=== PATIENT | female | born 1955 | race Caucasian/White ===

== ENCOUNTER 2017-01-22 17:13 | Emergency (ER) | payer BC, OTHER ==
[~2017-01-22] VITALS: Ht 162.6 cm; Wt 46.3 kg
[2017-01-22 17:13] VITALS: BP 138/80
[2017-01-22] MEDS ORDERED: DOXYCYCLINE HYCLATE 100 MG TAB PO ONE (17:45)
== END 2017-01-22 17:59 | disposition home or self-care (01) ==
LOC: M ED 17:53
DX: S10.86XA Insect bite of other specified part of neck, initial encounter (principal); W57.XXXA Bitten or stung by nonvenomous insect and other nonvenomous arthropods, initial encounter; Y92.9 Unspecified place or not applicable; Y93.9 Activity, unspecified; Y99.9 Unspecified external cause status; F17.200 Nicotine dependence, unspecified, uncomplicated

== ENCOUNTER → 2019-12-04 | Outpatient (REF) | payer OTHER | LOC: M LAB REF 19:08 | PROVIDERS: ATTEND Physician Assistant | DX: R05 Cough (principal) | CPT/HCPCS: 87486; 87581; 87633; 87798; U0002 ==

== ENCOUNTER → 2019-12-04 | Outpatient (REF) | payer OTHER ==
[2019-12-04 19:36] LABS: BASO % 0.3 % (0.0-1.0); EOS # 0.1 10^3/uL (0.0-0.5); EOS % 0.6 % (0.0-3.0); HEMOGLOBIN 12.7 g/dl (12.0-15.5); LYMPH # 1.9 10^3/uL (1.5-5.0); LYMPH % 15.2 % (24.0-44.0); MEAN CORPUSCULAR HEMOGLOBIN 38.6 pg (27.0-33.0); MEAN CORPUSCULAR HGB CONC 33.4 g/dl (32.0-36.5); MONO # 1.4 10^3/uL (0.0-0.8); MONO % 11.5 % (0.0-5.0); NEUTROPHILS # 8.8 10^3/uL (1.5-8.5); PLATELET COUNT, AUTOMATED 383 10^3/uL (150-450); RED BLOOD COUNT 3.29 10^6/uL (4.00-5.40); WHITE BLOOD COUNT 12.2 10^3/uL (4.0-10.0)
[2019-12-04 19:37] LABS: MEAN CORPUSCULAR VOLUME 115.5 fl (80.0-96.0)
[2019-12-04 19:58] LABS: ALBUMIN 3.7 GM/DL (3.2-5.2); ALT/SGPT 16 U/L (12-78); BILIRUBIN,TOTAL 0.4 MG/DL (0.2-1.0); BLOOD UREA NITROGEN 11 MG/DL (7-18); CALCIUM LEVEL 9.1 MG/DL (8.8-10.2); CARBON DIOXIDE LEVEL 26 MEQ/L (21-32); CHLORIDE LEVEL 102 MEQ/L (98-107); CREATININE FOR GFR 0.96 MG/DL (0.55-1.30); GLOMERULAR FILTRATION RATE > 60.0 (>45); GLUCOSE, FASTING 94 MG/DL (70-100); POTASSIUM SERUM 3.6 MEQ/L (3.5-5.1); SODIUM LEVEL 138 MEQ/L (136-145); TOTAL PROTEIN 7.3 GM/DL (6.4-8.2)
[2019-12-04 20:01] LABS: PLATELET ESTIMATE NORMAL (NORMAL)
== END ==
LOC: M LABDRWAD 19:10
PROVIDERS: ATTEND Physician Assistant
DX: R50.9 Fever, unspecified (principal); J44.1 Chronic obstructive pulmonary disease with (acute) exacerbation

== ENCOUNTER 2021-06-20 05:45 | Inpatient (IN) | payer MEDICARE, BC, OTHER ==
[~2021-06-20] VITALS: Ht 165.1 cm; Wt 56.9 kg
--- OUTSIDE RECORDS SUMMARY | 2021-06-20 05:50 | CCD ---
Author Author [facility] [place] [facility] Address Unknown Phone Unavailable Support Name Relationship Address Phone UE Next Of Kin Unknown Unavailable Re-disclosure Warning The records that you are about to access may contain information from federally-assisted alcohol or drug abuse programs. If such information is present, then the following federally mandated warning applies: This information has been disclosed to you from records protected by federal confidentiality rules (42 CFR part 2). The federal rules prohibit you from making any further disclosure of this information unless further disclosure is expressly permitted by the written consent of the person to whom it pertains or as otherwise permitted by 42 CFR part 2. A general authorization for the release of medical or other information is NOT sufficient for this purpose. The Federal rules restrict any use of the information to criminally investigate or prosecute any alcohol or drug abuse patient.The records that you are about to access may contain highly sensitive health information, the redisclosure of which is protected by Article 27-F of the [facility] Public Health law. If you continue you may have access to information: Regarding HIV / AIDS; Provided by facilities licensed or operated by the [facility] Office of Mental Health; or Provided by the [facility] Office for People With Developmental Disabilities. If such information is present, then the following [facility] mandated warning applies: This information has been disclosed to you from confidential records which are protected by state law. State law prohibits you from making any further disclosure of this information without the specific written consent of the person to whom it pertains, or as otherwise permitted by law. Any unauthorized further disclosure in violation of state law may result in a fine or shelter sentence or both. A general authorization for the release of medical or other information is NOT sufficient authorization for further disc losure. Family History Family Member Name Family Member Gender Family Member Status Date o f Status Description Data Source(s) Unknown Unknown Problem [facility] ([facility]) Immunizations Vaccine Date Status Description Data Source(s) COVID-19 VACC, MRNA(PFIZER)/PF 05/10/2021 12:00:00 AM EDT completed [facility] COVID-19 VACCINE Pfizer 05/10/2021 12:00:00 AM EDT completed [facility] Vaccine Series Complete: YESThis Data wa s Submitted to [facility] Via [employer]. COVID-19 VACCINE Pfizer 04/19/2021 12:00:00 AM EDT completed [facility] Vaccine Series Complete: NOThis Data was Submitted to [facility] Via [employer]. COVID-19 VACC, MRNA(PFIZER)/PF 04/19/2021 12:00:00 AM EDT completed [facility] Medications No Information Insurance Providers Payer name Policy type / Coverage type Policy ID Covered constitution party ID Covered constitution party's relationship to pal Policy Pal Plan Information [facility] [id number] FR2 [id number] [facility] [id number] FR2 [id number] MEDICARE [id number] [facility] [id number] [id number] [facility] Commercial [id number] Sponsored Dependent [id number] [facility] [id number] Problems, Conditions, and Diagnoses No Information Surgeries/Procedures No Information Results No Information Social History No Information
[2021-06-20] MEDS ORDERED: IPRATROPIUM 0.02% SOLN 0.5MG 2.5ML NEB INH ONE (05:55)
[2021-06-20] MEDS ORDERED: ALBUTEROL SULFATE 2.5 MG/0.5 ML INH NEB SOLN INH ONE (05:55)
[2021-06-20 06:06] LABS: ABG BASE EXCESS -1.5 (-2.0-2.0); ABG HCO3 23.6 MEQ/L (22.0-26.0); ABG O2 SATURATION 99.5 % (95.0-99.0); ABG PARTIAL PRESSURE CO2 41.3 mmHg (35.0-45.0); ABG PARTIAL PRESSURE O2 207.5 mmHg (75.0-100.0); ABG STANDARD HCO3 23.3 MEQ/L (22.0-26.0); ABG TOTAL CO2 24.9 MEQ/L (23.0-31.0); ABG pH (ARTERIAL) 7.375 UNITS (7.350-7.450)
[2021-06-20 06:30] LABS: BASO % 0.2 % (0.0-1.0); EOS % 0.1 % (0.0-3.0); HEMATOCRIT 42.4 % (36.0-47.0); HEMOGLOBIN 14.6 g/dl (12.0-15.5); LYMPH # 0.8 10^3/uL (1.5-5.0); LYMPH % 4.6 % (24.0-44.0); MEAN CORPUSCULAR HEMOGLOBIN 39.4 pg (27.0-33.0); MEAN CORPUSCULAR HGB CONC 34.4 g/dl (32.0-36.5); MONO % 5.6 % (2.0-8.0); NEUTROPHILS # 15.7 10^3/uL (1.5-8.5); NEUTROPHILS % 88.8 % (36.0-66.0); PLATELET COUNT, AUTOMATED 275 10^3/uL (150-450); RED BLOOD COUNT 3.71 10^6/uL (4.00-5.40); WHITE BLOOD COUNT 17.6 10^3/uL (4.0-10.0)
[2021-06-20] MEDS ORDERED: dexameTHASONE 20MG/5ML VIAL (J1100 PER 1MG) IV ONE (06:35)
[2021-06-20 06:40] LABS: MEAN CORPUSCULAR VOLUME 114.3 fl (80.0-96.0)
--- OUTSIDE RECORDS SUMMARY | 2021-06-20 06:40 | CCD ---
Author Author [facility] Address Unknown Phone Unavailable Support Name Relationship [...] is protected by Article 27-F of the [facility] Public Health law. If you continue you may have access to information: Regarding HIV / AIDS; Provided by facilities licensed or operated by the [facility] Office of Mental Health; or Provided by the [facility] Office for People With Developmental Disabilities. If such information is present, then the following [facility] mandated warning applies: This information has been [...] law may result in a fine or prison sentence or both. A general authorization for [...] Complete: YESThis Data wa s Submitted to [facility] Via [employer]. COVID-19 VACCINE Pfizer 04/19/2021 12:00:00 AM EDT completed [facility] Vaccine Series Complete: NOThis Data was Submitted to [facility] Via [employer]. COVID-19 VACC, MRNA(PFIZER)/PF 04/19/2021 12:00:00 AM EDT completed [facility] Medications No Information Insurance Providers Payer name Policy type / Coverage type Policy ID Covered constitution party ID Covered constitution party's relationship to pal Policy Pal Plan Information [facility] [id number] FR2 [id number] [facility] [id number] FR2 [id number] MEDICARE [id number] [id number] [facility] [id number] 2 [id number] [facility] Commercial [id number] Sponsored Dependent [id number] [facility] [id number] Problems, Conditions, and Diagnoses No Information Surgeries/Procedures No Information Results No Information Social History No Information
[2021-06-20 06:55] LABS: ALBUMIN 2.7 GM/DL (3.2-5.2); ALT/SGPT 32 U/L (12-78); BILIRUBIN,DIRECT 0.3 MG/DL (0.0-0.2); BILIRUBIN,TOTAL 0.6 MG/DL (0.2-1.0); BLOOD UREA NITROGEN 25 MG/DL (7-18); CALCIUM LEVEL 8.2 MG/DL (8.8-10.2); CARBON DIOXIDE LEVEL 28 MEQ/L (21-32); CHLORIDE LEVEL 96 MEQ/L (98-107); CK-MB VALUE MASS 2.1 NG/ML (<3.6); CPK CREATINE PHOSPHOKINASE 110 U/L (26-192); CREATININE FOR GFR 1.14 MG/DL (0.55-1.30); GLOMERULAR FILTRATION RATE 50.6 (>45); GLUCOSE, FASTING 103 MG/DL (70-100); MB/CK RELATIVE INDEX 1.91 (< OR =4); NT-PRO BNP 2590 PG/ML (<125); POTASSIUM SERUM 3.8 MEQ/L (3.5-5.1); SODIUM LEVEL 133 MEQ/L (136-145); TOTAL PROTEIN 6.5 GM/DL (6.4-8.2); TROPONIN I < 0.02 NG/ML (< 0.10)
[2021-06-20] MEDS ORDERED: cefTRIAXone SOD 2 GM in D5W MINI-BAG PLUS 50 ML IV ONE (06:55)
[2021-06-20] MEDS ORDERED: NS 1,430 ML in IV 1 EA IV ONE (07:10)
[2021-06-20] MEDS ORDERED: LEVALBUTEROL 1.25 MG/0.5 ML CONCENTRATE NEB INH PRN (07:25)
--- NOTE | 2021-06-20 07:30 | REPVR ---
PROCEDURE INFORMATION: Exam: XR Chest Exam date and time: 06/20/2021 6:12 AM Age: 66 years old Clinical indication: Other: Dyspnea/cough TECHNIQUE: Imaging protocol: XR of the chest. Views: 1 view. COMPARISON: No relevant prior studies available. FINDINGS: Lungs: Moderately severe large area of increased interstitial ground-glass density and nodularity in the left lower lobe and lateral left upper lobe suspicious for an atypical/viral pneumonia/pneumonitis, with COVID-19 infection in the differential diagnosis. Bilateral pulmonary hyperinflation is also present suggestive of underlying COPD. Pleural spaces: Unremarkable. No pleural effusion. No pneumothorax. Heart/Mediastinum: The heart size is normal. Normal size pulmonary vasculature. No CT evidence of acute thoracic aortic aneurysm. Mild tortuosity of the descending thoracic aorta, however. No enlarged lymph nodes. Bones/joints: The bony structures of the chest are normal Impression. IMPRESSION: 1. Moderately severe large area of increased interstitial ground-glass density and nodularity in the left lower lobe and lateral left upper lobe suspicious for an atypical/viral pneumonia/pneumonitis, with COVID-19 infection in the differential diagnosis. Bilateral pulmonary hyperinflation is also present suggestive of underlying COPD. 2. The heart size is normal. Normal size pulmonary vasculature. 3. No CT evidence of acute thoracic aortic aneurysm. Mild tortuosity of the descending thoracic aorta, however. Electronically signed by: Calin Kuhn On 06/20/2021 07:30:09 AM
[2021-06-20] MEDS ORDERED: ISOVUE-370 76% 100ML VIAL As Ordered ONE (07:32)
--- OUTSIDE RECORDS SUMMARY | 2021-06-20 07:35 | CCD ---
Author Author [facility] Address Unknown Phone Unavailable Support Name Relationship [...] is protected by Article 27-F of the [facility] Public Health law. If you continue you may have access to information: Regarding HIV / AIDS; Provided by facilities licensed or operated by the [facility] Office of Mental Health; or Provided by the [facility] Office for People With Developmental Disabilities. If such information is present, then the following [facility] mandated warning applies: This information has [...] law may result in a fine or usp sentence or both. A general authorization for [...] Complete: YESThis Data wa s Submitted to [facility] Via [employer]. COVID-19 VACCINE Pfizer 04/19/2021 12:00:00 AM EDT completed [facility] Vaccine Series Complete: NOThis Data was Submitted to [facility] Via [employer]. COVID-19 VACC, MRNA(PFIZER)/PF 04/19/2021 12:00:00 AM EDT completed [facility] Medications No Information Insurance Providers Payer name Policy type / Coverage type Policy ID Covered libertarian ID Covered libertarian's relationship to pal Policy Pal Plan Information [facility] [id number] FR2 [id number] [facility] [id number] FR2 [id number] MEDICARE [id number] G06 [facility] [id number] [facility] Commercial [id number] Sponsored Dependent [id number] [facility] [id number] Problems, Conditions, and Diagnoses No Information Surgeries/Procedures No Information Results No Information Social History No Information
[2021-06-20 07:53] LABS: PLATELET ESTIMATE NORMAL (NORMAL)
[2021-06-20 07:54] LABS: ANISOCYTOSIS 2+
[2021-06-20] MEDS: LEVALBUTEROL 1.25 MG/0.5 ML CONCENTRATE NEB INH SCH ×4 (08:29→22:57)
[2021-06-20] MEDS ORDERED: HOME MED LIST COMPLETE! XX SCH (08:45)
--- NOTE | 2021-06-20 09:31 | REPVR ---
PROCEDURE INFORMATION: Exam: CTA Chest With Contrast Exam date and time: 06/20/2021 7:59 AM Age: 66 years old Clinical indication: Shortness of breath; Additional info: SOB tachycardia R/O pe TECHNIQUE: Imaging protocol: Computed tomographic angiography of the chest with contrast. 3D rendering (Not supervised by radiologist): MIP and/or 3D reconstructed images were created by the technologist. Radiation optimization: All CT scans at this facility use at least one of these dose optimization techniques: automated exposure control; mA and/or kV adjustment per patient size (includes targeted exams where dose is matched to clinical indication); or iterative reconstruction. Contrast material: ISOVUE 370; Contrast volume: 75 ml; Contrast route: INTRAVENOUS (IV); COMPARISON: CR PORTABLE CHEST X-RAY 06/20/2021 6:03 AM FINDINGS: Pulmonary arteries: No CT evidence of acute pulmonary embolism. Aorta: No CT evidence of acute thoracic aortic dissection, thoracic aneurysm or acute intramural thoracic aortic hematoma. Lungs: Mild pulmonary hyperinflation is seen consistent with underlying COPD. In addition, a moderate-sized questionable loculated pleural effusion is seen anterior to the inferior lingula and medial left upper lobe, adjacent to which is a band of peripheral airspace consolidation and interstitial ground-glass densities and thickening of the interlobular pulmonary septa in the inferior lingula and in the lateral left lower lobe, seen on images 33 through 86 of series 402. This might represent a parapneumonic pleural effusion/early empyema versus COVID-19 peripheral pneumonitis versus an underlying neoplasm of the left upper lobe with associated lymphangitis carcinomatosa less likely. Pleural spaces: See "Lungs" finding. Heart: The heart size is normal. A small anterior pericardial effusion is present. Normal size pulmonary vasculature. No significant coronary artery calcification is present. Lymph nodes: No enlarged lymph nodes. Liver: Incidental note is made of a small 8.5 mm diameter hypodense mass in the anteromedial segment left lobe of the liver on image 187 of series 401. Additional other smaller hypodense masses are present in the left lobe and right lobes of the liver. These masses have benign features with well-defined la and internal homogeneous low attenuation density of less than 20 Hounsfield units and, in the absence of any history of prior cancer in this patient, are likely small simple cysts or hemangiomas. No further follow-up is recommended. Reference: Management of Incidental Liver Lesions on CT: A White Paper of the ACR Incidental Findings Committee. Shlomo Littlejohn MD, et al. Journal of the [place] [employer], Jun 2017, Volume 14, Issue 11, 5412-2497. Bones/joints: The bony structures of the chest are normal for age. Soft tissues: Unremarkable. IMPRESSION: 1. No CT evidence of acute pulmonary embolism. 2. No CT evidence of acute thoracic aortic dissection, thoracic aneurysm or acute intramural thoracic aortic hematoma. 3. The heart size is normal. A small anterior pericardial effusion is present. Normal size pulmonary vasculature. No significant coronary artery calcification is present. 4. Mild pulmonary hyperinflation is seen consistent with underlying COPD. In addition, a moderate-sized questionable loculated pleural effusion is seen anterior to the inferior lingula and medial left upper lobe, adjacent to which is a band of peripheral airspace consolidation and interstitial ground-glass densities and thickening of the interlobular pulmonary septa in the inferior lingula and in the lateral left lower lobe, seen on images 33 through 86 of series 402. This might represent a parapneumonic pleural effusion/early empyema versus COVID-19 peripheral pneumonitis versus an underlying neoplasm of the left upper lobe with associated lymphangitis carcinomatosa less likely. 5. The bony structures of the chest are normal for age. 6. These masses have benign features with well-defined la and internal homogeneous low attenuation density of less than 20 Hounsfield units and, in the absence of any history of prior cancer in this patient, are likely small simple cysts or hemangiomas. No further follow-up is recommended. Reference: Management of Incidental Liver Lesions on CT: A White Paper of the ACR Incidental Findings Committee. Shlomo Littlejohn MD, et al. Journal of the [place] [employer], Jun 2017, Volume 14, Issue 11, 9751-8498. Electronically signed by: Calin Kuhn On 06/20/2021 09:30:38 AM
[2021-06-20] MEDS: PROPRANOLOL 20 MG TAB PO SCH ×3 (09:40→23:19)
[2021-06-20] MEDS: ENOXAPARIN 40MG/0.4ML SYRINGE (J1650 PER 10MG) SC SCH (09:55)
[2021-06-20] MEDS: DOXYCYCLINE HYCLATE 100 MG in D5W MINI-BAG PLUS 100 ML IV SCH ×2 (09:55→22:59)
--- NOTE | 2021-06-20 12:03 | ECGEPIP ---
[facility] Test Date: 2021-06-20 Pat Name: OLGA ROJAS Department: Room: - Gender: Female [employer] Operator: GALINA : 1955 Requested By: ZAK Barth Order Number: [id number] Reading MD: Benito Hubbard Measurements Intervals [place] Rate: 104 P: 82 VA: 126 QRS: 91 QRSD: 76 T: 54 QT: 358 QTc: 470 Interpretive Statements Sinus tachycardia with premature atrial complexes Rightward axis Last tracing on 06/20/21 at 6:18 No remarkable changes but slower heart rate Electronically Signed on 06-20-2021 12:02:39 EDT by Benito Hubbard
[2021-06-20] MEDS ORDERED: NICOTINE POLACRILEX 2 MG GUM PO PRN (12:40)
[2021-06-20 12:55] LABS: CK-MB VALUE MASS 2.5 NG/ML (<3.6); CPK CREATINE PHOSPHOKINASE 119 U/L (26-192); FREE THYROXINE INDEX 3.5 % (1.3-4.8); T UPTAKE 41 % (30-39); THYROXINE (T4) 8.6 UG/DL (4.5-12.0); TROPONIN I < 0.02 NG/ML (< 0.10)
--- NOTE | 2021-06-20 13:18 | HPEPDOC ---
[facility] Medical History & Physical Date of Admission Jun 20, 2021 Date of Service: Jun 20, 2021 History and Physical CHIEF COMPLAINT: Shortness of breath HISTORY OF PRESENT ILLNESS: 66-year-old female with a history of COPD not oxygen or steroid-dependent, alcohol abuse, alcohol withdrawal, alcohol withdrawal seizures, gout, tobacco abuse, marijuana abuse, abnormal EKG with right axis deviation, presents emergency room with a few days history of worsening shortness of breath, initially with exertion, with difficulty walking from bed to the bathroom, but now complains of dyspnea at rest, without fever, chills, or cough productive of sputum. For the past 3 days she has had decrease in appetite, without nausea, vomiting, headache, changes in vision, chest pain, pressure, tightness. She admits to palpitations as without dizziness, lightheadedness, or syncopal episode. She denies any abdominal pain, hematemesis, coffee-ground emesis, bright red blood per rectum melena black tarry stools, dysuria, urgency, miguel quency, polyphagia, polydipsia, weight gain weight loss, changes in sleep habits, joint pains muscle aches, anxiety, depression, unusual masses or nodules, or skin rash. Patient did not have any bronchodilators at home, and no medications were taken. In the emergency room, patient was found to be tachycardic heart rate of 130 bpm sinus, tachypneic with respiratory rate of 34 breaths/min, and was found to have significant wheezing, with chest x-ray showing left lower lobe and left upper lobe infiltrates, EKG sinus tachycardia with right axis deviation, sepsis with white count of 17.6 . Hospitalist was asked to admit the patient for pneumonia, negative for coronavirus, and COPD exacerbation. 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 REVIEW OF SYSTEMS: 10 point system negative aside from positive findings in HPI HOME MEDICATIONS: Please see below. PHYSICAL EXAMINATION: VITAL SIGNS: See below GENERAL APPEARANCE: Cachectic positive use of respiratory accessory muscles no cyanosis or pallor HEENT: No JVD no thyromegaly bitemporal wasting no cervical lymphadenopathy or stridor dry mucous membranes Poor dentition CARDIOVASCULAR: S1-S2 sinus tachycardia laterally displaced point of maximal impulse no murmurs noted LUNGS: Diminished left lower and upper lobe, bilateral wheezing, prolonged expiration ABDOMEN: Positive bowel sounds soft nontender nondistended no rebound or guardin EXTREMITIES: No pitting edema positive clubbing LABORATORY DATA: See below. IMAGING: See below CT CHEST: Pulmonary arteries: No CT evidence of acute pulmonary embolism. Aorta: No CT evidence of acute thoracic aortic dissection, thoracic aneurysm or acute intramural thoracic aortic hematoma. Lungs: Mild pulmonary hyperinflation is seen consistent with underlying COPD. In addition, a moderate-sized questionable loculated pleural effusion is seen anterior to the inferior lingula and medial left upper lobe, adjacent to which is a band of peripheral airspace consolidation and interstitial ground-glass densities and thickening of the interlobular pulmonary septa in the inferior lingula and in the lateral left lower lobe, seen on images 33 through 86 of series 402. This might represent a parapneumonic pleural effusion/early empyema versus COVID-19 peripheral pneumonitis versus an underlying neoplasm of the left upper lobe with associated lymphangitis carcinomatosa less likely. Pleural spaces: See "Lungs" finding. Heart: The heart size is normal. A small anterior pericardial effusion is present. Normal size pulmonary vasculature. No significant coronary artery calcification is present. Lymph nodes: No enlarged lymph nodes. Liver: Incidental note is made of a small 8.5 mm diameter hypodense mass in the anteromedial segment left lobe of the liver on image 187 of series 401. Additional other smaller hypodense masses are present in the left lobe and right lobes of the liver. These masses have benign features with well-defined la and internal homogeneous low attenuation density of less than 20 Hounsfield units and, in the absence of any history of prior cancer in this patient, are likely small simple cysts or hemangiomas. No further follow-up is recommended. Reference: Management of Incidental Liver Lesions on CT: A White Paper of the ACR Incidental Findings Committee. Shlomo Littlejohn MD, et al. Journal of the [employer], Jun 2017, Volume 14, Issue 11, 7430-7955. Bones/joints: The bony structures of the chest are normal for age. Soft tissues: Unremarkable. IMPRESSION: 1. No CT evidence of acute pulmonary embolism. 2. No CT evidence of acute thoracic aortic dissection, thoracic aneurysm or acute intramural thoracic aortic hematoma. 3. The heart size is normal. A small anterior pericardial effusion is present. Normal size pulmonary vasculature. No significant coronary artery calcification is present. 4. Mild pulmonary hyperinflation is seen consistent with underlying COPD. In addition, a moderate-sized questionable loculated pleural effusion is seen anterior to the inferior lingula and medial left upper lobe, adjacent to which is a band of peripheral airspace consolidation and interstitial ground-glass densities and thickening of the interlobular pulmonary septa in the inferior lingula and in the lateral left lower lobe, seen on images 33 through 86 of series 402. This might represent a parapneumonic pleural effusion/early empyema versus COVID-19 peripheral pneumonitis versus an underlying neoplasm of the left upper lobe with associated lymphangitis carcinomatosa less likely. 5. The bony structures of the chest are normal for age. 6. These masses have benign features with well-defined la and internal homogeneous low attenuation density of less than 20 Hounsfield units and, in the absence of any history of prior cancer in this patient, are likely small simple cysts or hemangiomas. No further follow-up is recommended. MICROBIOLOGY: Please see below. ASSESSMENT: 66-year-old female with a history of COPD not oxygen or steroid-dependent, alcohol abuse, alcohol withdrawal, alcohol withdrawal seizures, gout, tobacco abuse, marijuana abuse, abnormal EKG with right axis deviation, presents e [facility] room with a few days history of worsening shortness of breath, initially with exertion but now at rest without fever, chills, or cough productive of sputum. For the past 3 days she has had decrease in appetite, without nausea, vomiting, headache, changes in vision, chest pain, pressure, ti ghtness. She admits to palpitations as without dizziness, lightheadedness, or syncopal episode. She denies any abdominal pain, hematemesis, coffee-ground emesis, bright red blood per rectum melena black tarry stools, dysuria, urgency, frequency, polyphagia, polydipsia, weight gain weight loss, changes in sleep habits, joint pains muscle aches, anxiety, depression, unusual masses or nodules, or skin rash. In the emergency room, patient was found to be tachycardic heart rate of 130 bpm sinus, tachypneic with respiratory rate of 34 breaths/min, and was found to have significant wheezing, with chest x-ray showing left lower lobe and left upper lobe infiltrates, EKG sinus tachycardia with right axis deviation, sepsis with white count of 17.6 . Hospitalist was asked to admit the patient for pneumonia, negative for coronavirus, and COPD exacerbation. Sepsis secondary to left upper lobe and lower lobe community-acquired pneumonia with effusion -On IV ceftriaxone and doxycycline day #1 -Sputum culture, urine Legionella antigen, urine streptococcal antigen, MRSA screen -COVID-19 was negative -Thoracentesis in the morning for diagnostic purposes -Oxygen to keep saturations at 88 to 92% left upper lobe and lower lobe community-acquired pneumonia with effusion -Continue on IV antibiotics for 7 days, nebulizer, supplemental oxygen to keep saturations at 88 to 92% -Await culture results, and de-escalate antibiotics once sensitivity results are available Acute COPD exacerbation -Received Decadron in the ER -Continue with Solu-Medrol intravenously every 6 hourly -Nebulizers with Xopenex -Titrate oxygen to keep saturations at 88 to 92% Active tobacco abuse -Tobacco cessation counseling has been provided -Nicotine replacement therapy provided Alcohol abuse with history of alcohol withdrawal and seizures -[facility] protocol with Ativan as needed. -We will need to monitor for respiratory acidosis due to acute COPD exacerbation and increased risk of hypercapnic respiratory failure with use of Ativan for withdrawal. -If patient develops respiratory acidosis, will need to change to Librium instead of Ativan for alcohol withdrawal symptoms -Alcohol withdrawal precautions/seizure precautions -Multivitamin thiamine folate Recreational drug use -Admits to previous marijuana use -Check urine toxicology screen Pulmonary cachexia BMI of 17.5 with protein calorie malnutrition -[facility] [employer] consult for supplemental nutrition if needed Benign liver lesions most likely hemangiomas -Outpatient follow-up Abnormal EKG with right axis deviation -Secondary to chronic obstructive pulmonary disease Sinus tachycardia -Pulmonary embolism ruled out Abnormal TSH -Check thyroid function tests rule out hypothyroidism Mild hyponatremia -Most likely due to chronic alcohol use -Recheck basic metabolic panel Elevated BNP -Most likely due to pulmonary hypertension from longstanding COPD -Does not appear to be volume overloaded clinically -Check 2D echo Diet: COPD/2 g sodium CODE STATUS: Full code DVT prophylaxis: Lovenox Disposition: 2 to 3 days pending clinical improvement Vital Signs Vital Signs Date Time Temp Pulse Resp B/P (MAP) Pulse Ox O2 Delivery O2 Flow Rate FiO2 06/20/21 10:30 107 30 115/74 (88) 92 Nasal Cannula 2.0 06/20/21 05:55 97.6 Laboratory Data Labs 24H Laboratory Tests 2 06/20/21 05:59: Blood Gas Bicarbonate Standard 23.3, Arterial Blood pH 7.375, Arterial Blood Partial Pressure CO2 41.3, Arterial Blood Partial Pressure O2 207.5H, Arterial Blood Total CO2 24.9, Arterial Blood HCO3 23.6, Arterial Blood Base Excess -1.5, Arterial Blood Oxygen Saturation 99.5H 06/20/21 06:01: Immature Granulocyte % (Auto) 0.7, Neutrophils (%) (Auto) 88.8H, Lymphocytes (%) (Auto) 4.6L, Monocytes (%) (Auto) 5.6, Eosinophils (%) (Auto) 0.1, Basophils (%) (Auto) 0.2, Neutrophils # (Auto) 15.7H, Lymphocytes # (Auto) 0.8L, Monocytes # (Auto) 1.0H, Eosinophils # (Auto) 0.0, Basophils # (Auto) 0.0, Nucleated Red Blood Cells % (auto) 0.0, Platelet Estimate NORMAL, Anisocytosis 2+, Macrocytosis 2+, Anion Gap 9, Glomerular Filtration Rate 50.6, Calcium Level 8.2L, Total Bilirubin 0.6, Direct Bilirubin 0.3H, Aspartate Amino Transf ( AST/SGOT) 22, Alanine Aminotransferase (ALT/SGPT) 32, Alkaline Phosphatase 114, Total Creatine Kinase 110, Creatine Kinase MB 2.1, Creatine Kinase MB Relative Index 1.91, Troponin I < 0.02, GH-Pvv-X-Type Natriuretic Peptide 2590H, Total Protein 6.5, Albumin 2.7L, Albumin/Globulin Ratio 0.7L, Thyroid Stimulating Hormone (TSH) 5.140H 06/20/21 06:02: Ethyl Alcohol Level < 0.003 06/20/21 08:21: Methicillin-Resist S.aureus DNA PCR NOT DETECTED 06/20/21 12:11: CBC/BMP Laboratory Tests 06/20/21 06:01 Microbiology Microbiology 06/20/21 Gram Stain - Final, Resulted 06/20/21 Sputum Culture, Resulted Pending 06/20/21 Respiratory Virus Panel (PCR) (MARK) - Final, Complete 06/20/21 Blood Culture, Received Pending 06/20/21 Blood Culture, Received Pending Home Medications No Active Prescriptions or Reported Meds Allergies Coded Allergies: No Known Allergies (Unverified , 06/20/21) A-FIB/CHADSVASC A-FIB History Current/History of A-Fib/PAF?: No Current PO Anticoag Therapy: No Age/Risk Factor Scoring CHADSVASC: CHADSVASC Response (Comments) Value Age Risk Factor Age 65-74 years old 1 Gender Risk Factor Female 1 Hx of CHF No 0 Hx of HTN Yes 1 Hx of Stroke/TIA/or VTE No 0 Hx of Diabetes No 0 Hx of Vascular Disease No 0 Total 3 Treatment Treatment ordered: NONE ZAK KNAPP MD Jun 20, 2021 12:46
[2021-06-20 13:57] LABS: LDH LACTATE DEHYDROGENASE 242 U/L (84-246)
[2021-06-20] MEDS: THIAMINE 100 MG TAB PO SCH (14:31)
[2021-06-20] MEDS: MULTIVITAMINS/MINERALS THERAP 1 TAB PO SCH (14:31)
[2021-06-20] MEDS: NICOTINE 21MG/24HR 1 EA TRANSDERMAL TD SCH (14:32)
[2021-06-20] MEDS: FOLIC ACID 1 MG TAB PO SCH (14:32)
[2021-06-20] MEDS: methylPREDNISolone 125MG 2ML VIAL IV SCH ×2 (14:32→22:59)
[2021-06-20 19:10] LABS: CK-MB VALUE MASS 3.1 NG/ML (<3.6); CPK CREATINE PHOSPHOKINASE 101 U/L (26-192); MB/CK RELATIVE INDEX 3.07 (< OR =4); TROPONIN I < 0.02 NG/ML (< 0.10)
[2021-06-20] MEDS ORDERED: LORazepam 2 MG TAB PO PRN (21:30)
[2021-06-21] MEDS: NICOTINE 21MG/24HR 1 EA TRANSDERMAL TD SCH (01:57)
[2021-06-21] MEDS: LEVALBUTEROL 1.25 MG/0.5 ML CONCENTRATE NEB INH SCH ×6 (05:03→20:01)
[2021-06-21] MEDS: methylPREDNISolone 125MG 2ML VIAL IV SCH ×4 (05:04→20:11)
--- NOTE | 2021-06-21 05:44 | ECGEPIP ---
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
[2021-06-21 07:19] LABS: BASO % 0.2 % (0.0-1.0); HEMATOCRIT 35.4 % (36.0-47.0); LYMPH # 0.4 10^3/uL (1.5-5.0); LYMPH % 2.7 % (24.0-44.0); MEAN CORPUSCULAR HEMOGLOBIN 39.3 pg (27.0-33.0); MEAN CORPUSCULAR HGB CONC 33.6 g/dl (32.0-36.5); MONO # 0.4 10^3/uL (0.0-0.8); MONO % 3.2 % (2.0-8.0); NEUTROPHILS # 12.8 10^3/uL (1.5-8.5); NEUTROPHILS % 91.7 % (36.0-66.0); PLATELET COUNT, AUTOMATED 261 10^3/uL (150-450); RED BLOOD COUNT 3.03 10^6/uL (4.00-5.40)
[2021-06-21 07:24] LABS: HEMOGLOBIN 11.9 g/dl (12.0-15.5); MEAN CORPUSCULAR VOLUME 116.8 fl (80.0-96.0)
[2021-06-21 07:39] VITALS: BP 155/84
[2021-06-21 07:47] LABS: ALT/SGPT 24 U/L (12-78); BILIRUBIN,DIRECT 0.1 MG/DL (0.0-0.2); BLOOD UREA NITROGEN 24 MG/DL (7-18); CALCIUM LEVEL 8.7 MG/DL (8.8-10.2); CARBON DIOXIDE LEVEL 29 MEQ/L (21-32); CHLORIDE LEVEL 103 MEQ/L (98-107); CK-MB VALUE MASS 2.8 NG/ML (<3.6); CPK CREATINE PHOSPHOKINASE 64 U/L (26-192); CREATININE FOR GFR 1.03 MG/DL (0.55-1.30); GLOMERULAR FILTRATION RATE 56.9 (>45); GLUCOSE, FASTING 123 MG/DL (70-100); MB/CK RELATIVE INDEX 4.38 (< OR =4); SODIUM LEVEL 136 MEQ/L (136-145); TOTAL PROTEIN 6.1 GM/DL (6.4-8.2); TROPONIN I < 0.02 NG/ML (< 0.10)
[2021-06-21 07:48] LABS: BILIRUBIN,TOTAL 0.2 MG/DL (0.2-1.0)
[2021-06-21 08:01] LABS: PLATELET ESTIMATE NORMAL (NORMAL)
[2021-06-21 08:02] LABS: ANISOCYTOSIS 1+
[2021-06-21] MEDS: MULTIVITAMINS/MINERALS THERAP 1 TAB PO SCH (09:18)
[2021-06-21] MEDS: FOLIC ACID 1 MG TAB PO SCH (09:18)
[2021-06-21] MEDS: DOXYCYCLINE HYCLATE 100 MG in D5W MINI-BAG PLUS 100 ML IV SCH ×2 (09:18→20:11)
[2021-06-21] MEDS: THIAMINE 100 MG TAB PO SCH (09:18)
[2021-06-21] MEDS: PROPRANOLOL 20 MG TAB PO SCH (09:29)
--- NOTE | 2021-06-21 10:10 | IPNPDOC ---
Date Seen The patient was seen on 06/21/21. Progress Note SUBJECTIVE: Patient says she feels a little bit better but still with dyspnea and exertion without fever chills.. She has a dry cough with difficult to expectorate sputum. She denies any chest pain pressure tightness lightheadedness or dizziness. No issues overnight. PHYSICAL EXAMINATION: VITAL SIGNS: See below GENERAL APPEARANCE: Positive conversational dyspnea about 6-7 words cachectic positive use of respiratory accessory muscles no cyanosis or pallor Tripod positioning HEENT: No JVD no thyromegaly bitemporal wasting no cervical lymphadenopathy or stridor dry mucous membranes Poor dentition CARDIOVASCULAR: S1-S2 sinus rhythm laterally displaced point of maximal impulse no murmurs noted LUNGS: Diminished left lower and upper lobe crackles, faint bilateral expiratory wheezing, prolonged expiration ABDOMEN: Positive bowel sounds soft nontender nondistended no rebound or guardin EXTREMITIES: No pitting edema positive clubbing LABORATORY DATA: See below. IMAGING: See below CT CHEST: Pulmonary arteries: No CT evidence of acute pulmonary embolism. Aorta: No CT evidence of acute thoracic aortic dissection, thoracic aneurysm or acute intramural thoracic aortic hematoma. Lungs: Mild pulmonary hyperinflation is seen consistent with underlying COPD. In addition, a moderate-sized questionable loculated pleural effusion is seen anterior to the inferior lingula and medial left upper lobe, adjacent to which is a band of peripheral airspace consolidation and interstitial ground-glass densities and thickening of the interlobular pulmonary septa in the inferior lingula and in the lateral left lower lobe, seen on images 33 through 86 of series 402. This might represent a parapneumonic pleural effusion/early empyema versus COVID-19 peripheral pneumonitis versus an underlying neoplasm of the left upper lobe with associated lymphangitis carcinomatosa less likely. Pleural spaces: See "Lungs" finding. Heart: The heart size is normal. A small anterior pericardial effusion is present. Normal size pulmonary vasculature. No significant coronary artery calcification is present. Lymph nodes: No enlarged lymph nodes. Liver: Incidental note is made of a small 8.5 mm diameter hypodense mass in the anteromedial segment left lobe of the liver on image 187 of series 401. Additional other smaller hypodense masses are present in the left lobe and right lobes of the liver. These masses have benign features with well-defined la and internal homogeneous low attenuation density of less than 20 Hounsfield units and, in the absence of any history of prior cancer in this patient, are likely small simple cysts or hemangiomas. No further follow-up is recommended. Reference: Management of Incidental Liver Lesions on CT: A White Paper of the ACR Incidental Findings Committee. Shlomo Littlejohn MD, et al. Journal of the [employer], Jun 2017, Volume 14, Issue 11, 7619-5205. Bones/joints: The bony structures of the chest are normal for age. Soft tissues: Unremarkable. IMPRESSION: 1. No CT evidence of acute pulmonary embolism. 2. No CT evidence of acute thoracic aortic dissection, thoracic aneurysm or acute intramural thoracic aortic hematoma. 3. The heart size is normal. A small anterior pericardial effusion is present. Normal size pulmonary vasculature. No significant coronary artery calcification is present. 4. Mild pulmonary hyperinflation is seen consistent with underlying COPD. In addition, a moderate-sized questionable loculated pleural effusion is seen anterior to the inferior lingula and medial left upper lobe, adjacent to which is a band of peripheral airspace consolidation and interstitial ground-glass densities and thickening of the interlobular pulmonary septa in the inferior lingula and in the lateral left lower lobe, seen on images 33 through 86 of series 402. This might represent a parapneumonic pleural effusion/early empyema versus COVID-19 peripheral pneumonitis versus an underlying neoplasm of the left upper lobe with associated lymphangitis carcinomatosa less likely. 5. The bony structures of the chest are normal for age. 6. These masses have benign features with well-defined la and internal homogeneous low attenuation density of less than 20 Hounsfield units and, in the absence of any history of prior cancer in this patient, are likely small simple cysts or hemangiomas. No further follow-up is recommended. MICROBIOLOGY: Please see below. ASSESSMENT: 66-year-old female with a history of COPD not oxygen or steroid-dependent, alcohol abuse, alcohol withdrawal, alcohol withdrawal seizures, gout, tobacco abuse, marijuana abuse, abnormal EKG with right axis deviation, presents emergency room with a few days history of worsening shortness of breath, i nitially with exertion but now at rest without fever, chills, or cough productive of sputum. For the past 3 days she has had decrease in appetite, without nausea, vomiting, headache, changes in vision, chest pain, pressure, tightness. She admits to palpitations as without dizziness, lightheadedness, or syncopal episode. She denies any abdominal pain, hematemesis, coffee-ground emesis, bright red blood per rectum melena black tarry stools, dysuria, urgency, frequency, polyphagia, polydipsia, weight gain weight loss, changes in sleep habits, joint pains muscle aches, anxiety, depression, unusual masses or nodules, or skin rash. In the emergency room, patient was found to be tachycardic heart rate of 130 bpm sinus, tachypneic with respiratory rate of 34 breaths/min, and was found to have significant wheezing, with chest x-ray showing left lower lobe and left upper lobe infiltrates, EKG sinus tachycardia with right axis deviation, sepsis with white count of 17.6 . Hospitalist was asked to admit the patient for pneumonia, negative for coronavirus, and COPD exacerbation. Sepsis secondary to left upper lobe and lower lobe community-acquired pneumonia with effusion -On IV ceftriaxone and doxycycline day #2 -Dry cough unable to obtain a sputum culture -Ordered urine Legionella antigen, urine streptococcal antigen, MRSA screen -COVID-19 was negative -Thoracentesis for possible empyema for culture and sensitivity. Pleural fluid analysis ordered -Oxygen to keep saturations at 88 to 92% left upper lobe and lower lobe community-acquired pneumonia with effusion -Continue on IV antibiotics for 7 days, nebulizer, supplemental oxygen to keep saturations at 88 to 92% -Day #2 of IV ceftriaxone and doxycycline -Await culture results, and de-escalate antibiotics once sensitivity results are available Acute COPD exacerbation -Received Decadron in the ER -Continue with Solu-Medrol intravenously every 6 hourly with persistent expiratory wheezing. Therefore no change in dose. -Nebulizers with Xopenex -Titrate oxygen to keep saturations at 88 to 92% Active tobacco abuse -Tobacco cessation counseling has been provided -Nicotine replacement therapy provided Alcohol abuse with history of alcohol withdrawal and seizures -[facility] protocol with Ativan as needed. -We will need to monitor for respiratory acidosis due to acute COPD exacerbation and increased risk of hypercapnic respiratory failure with use of Ativan for withdrawal. -If patient develops respiratory acidosis, will need to change to Librium instead of Ativan for alcohol withdrawal symptoms -Alcohol withdrawal precautions/seizure precautions -Multivitamin thiamine folate Recreational drug use -Admits to previous marijuana use -Check urine toxicology screen Pulmonary cachexia BMI of 17.5 with protein calorie malnutrition -Medical/Surgery Registered Nurse consult for supplemental nutrition if needed Benign liver lesions most likely hemangiomas -Outpatient follow-up Abnormal EKG with right axis deviation -Secondary to chronic obstructive pulmonary disease Sinus tachycardia, resolved -Pulmonary embolism ruled out Abnormal TSH -Thyroid function tests reviewed Mild hyponatremia -Most likely due to chronic alcohol use -Asymptomatic Elevated BNP -Most likely due to pulmonary hypertension from longstanding COPD -Does not appear to be volume overloaded clinically -Check 2D echo Diet: COPD/2 g sodium CODE STATUS: Full code DVT prophylaxis: Lovenox VS, I&O, 24H, Fishbone Vital Signs/I&O Vital Signs Date Time Temp Pulse Resp B/P (MAP) Pulse Ox O2 Delivery O2 Flow Rate FiO2 06/21/21 09:29 97 155/84 06/21/21 07:39 99.1 20 96 Nasal Cannula 2.0 I&O- Last 24 Hours up to 6 AM 06/21/21 05:59 Intake Total 1680 ml Balance 1680 ml Laboratory Data 24H LABS Laboratory Tests 2 06/20/21 12:11: Lactate Dehydrogenase 242, Total Creatine Kinase 119, Creatine Kinase MB 2.5, Creatine Kinase MB Relative Index 2.10, Troponin I < 0.02, Thyroid Stimulating Hormone (TSH) 1.090, Free Thyroxine Index 3.5, Thyroxine (T4) 8.6, Triiodothyronine (T3) Uptake 41H 06/20/21 18:25: Total Creatine Kinase 101, Creatine Kinase MB 3.1, Creatine Kinase MB Relative Index 3.07, Troponin I < 0.02 06/21/21 07:03: Total Creatine Kinase 64, Creatine Kinase MB 2.8, Creatine Kinase MB Relative Index 4.38H, Troponin I < 0.02, Immature Granulocyte % (Auto) 2.2, Neutrophils (%) (Auto) 91.7H, Lymphocytes (%) (Auto) 2.7L, Monocytes (%) (Auto) 3.2, Eosinophils (%) (Auto) 0.0, Basophils (%) (Auto) 0.2, Neutrophils # (Auto) 12.8H, Lymphocytes # (Auto) 0.4L, Monocytes # (Auto) 0.4, Eosinophils # (Auto) 0.0, Basophils # (Auto) 0.0, Nucleated Red Blood Cells % (auto) 0.0, Platelet Estimate NORMAL, Anisocytosis 1+, Macrocytosis 3+, Anion Gap 4L, Glomerular Filtration Rate 56.9, Calcium Level 8.7L, Magnesium Level 2.0, Total Bilirubin 0.2#, Direct Bilirubin 0.1, Aspartate Amino Transf (AST/SGOT) 16, Alanine Aminotransferase (ALT/SGPT) 24, Alkaline Phosphatase 98, Total Protein 6.1L, Albumin 2.0#L, Albumin/Globulin Ratio 0.5L CBC/BMP Laboratory Tests 06/21/21 07:03 Microbiology Microbiology 06/20/21 Gram Stain - Final, Resulted 06/20/21 Sputum Culture, Resulted Pending 06/20/21 Respiratory Virus Panel (PCR) ([facility]) - Final, Complete 06/20/21 Blood Culture - Preliminary, Resulted No growth after 24 hours . All specim... 06/20/21 Blood Culture - Preliminary, Resulted No growth after 24 hours . All specim... ZAK KNAPP MD Jun 21, 2021 10:10
[2021-06-21] MEDS ORDERED: LIDOCAINE 1% MDV 20ML VIAL As Ordered ONE (12:06)
[2021-06-21 12:21] LABS: CK-MB VALUE MASS 2.9 NG/ML (<3.6); CPK CREATINE PHOSPHOKINASE 67 U/L (26-192); MB/CK RELATIVE INDEX 4.33 (< OR =4); TROPONIN I < 0.02 NG/ML (< 0.10)
--- NOTE | 2021-06-21 13:05 | REP ---
INDICATION: POST LEFT THORA, 2 VIEW. COMPARISON: Radiographs and CT 06/20/2021. TECHNIQUE: Two views chest. FINDINGS: Left pigtail pleural drainage catheter is present overlying the mid thorax. There is no pneumothorax. There are left lung infiltrates present. The heart is not significantly enlarged. IMPRESSION: Placement of left pigtail pleural drainage catheter overlying the mid left hemithorax. No pneumothorax. <Electronically signed by Temo Pruitt > 06/21/21 1300
[2021-06-21 13:25] VITALS: BP 140/82
[2021-06-21 13:39] LABS: PH BODY FLUID 7.003 UNITS (NOT ESTABLISHED); SOURCE, BODY FLUID pH PLEURAL
[2021-06-21 14:11] LABS: AMYLASE, BODY FLUID 52 U/L (NOT ESTABLISHED); CHOLESTEROL, BODY FLUID 144 MG/DL (NOT ESTABLISHED); LDH, BODY FLUID 878 U/L (NOT ESTABLISHED); SOURCE, BODY FLUID ALBUMIN PLEURAL; SOURCE, BODY FLUID AMYLASE PLEURAL; SOURCE, BODY FLUID CHOL PLEURAL; SOURCE, BODY FLUID GLUCOSE PLEURAL; SOURCE, BODY FLUID LDH PLEURAL; SOURCE, BODY FLUID TOT PROTEIN PLEURAL; SOURCE, BODY FLUID TRIG PLEURAL; TOTAL PROTEIN, BODY FLUID 4.4 G/DL (NOT ESTABLISHED); TRIGLYCERIDE, BODY FLUID 68 MG/DL (NOT ESTABLISHED)
[2021-06-21 14:26] LABS: PLEURAL FL COLOR YELLOW (COLORLESS); SOURCE, BODY FLUID PLEURAL
[2021-06-21 14:27] LABS: APPEARANCE, BODY FLUID CLOUDY (CLEAR)
[2021-06-21] MEDS ORDERED: METOCLOPRAMIDE INJ 10MG/2ML VIAL (J2765 PER 1) IV ONE (14:45)
[2021-06-21] MEDS ORDERED: FIORICET TAB PO PRN (14:45)
[2021-06-21] MEDS ORDERED: FIORICET TAB PO ONE (14:45)
[2021-06-21] MEDS ORDERED: ACETAMINOPHEN 500 MG TAB PO PRN (14:55)
[2021-06-21 16:00] VITALS: BP 127/82
--- NOTE | 2021-06-21 18:08 | REP ---
INDICATION: LEFT PLEURAL EFFUSION. COMPARISON: None. TECHNIQUE: The procedure was performed under the direct supervision of Dr. Pruitt. The risks and benefits of the procedure were explained to the patient and informed consent was obtained. The left pleural effusion was localized using ultrasound guidance. The skin was prepped and draped in a sterile fashion. 10 mL of 1% lidocaine was used as a local anesthetic. Using ultrasound guidance a 10 Bulgarian skater APDL catheter was inserted using trocar technique. 20 mL of low viscosity red colored fluid was withdrawn and sent to the lab for analysis. The catheter was affixed to the skin and a sterile dressing was applied. The catheter was connected to a pleura vac. Estimated blood loss: Less than 1 mL The patient tolerated the procedure well and there were no immediate complications. FINDINGS: None IMPRESSION: Ultrasound-guided left thoracentesis with catheter placement. <Electronically signed by Henrry Calix > 06/21/21 [id number] <Electronically signed by Temo Pruitt > 06/21/21 [id number]
[2021-06-21] MEDS: METOPROLOL TART 25 MG TABLET PO SCH (18:10)
[2021-06-21] MEDS: ENOXAPARIN 40MG/0.4ML SYRINGE (J1650 PER 10MG) SC SCH (18:28)
[2021-06-21 20:00] VITALS: BP 131/77
[2021-06-21 22:00] VITALS: BP 153/85
[2021-06-22] MEDS: METOPROLOL TART 25 MG TABLET PO SCH ×4 (00:09→18:13)
[2021-06-22] MEDS: LEVALBUTEROL 1.25 MG/0.5 ML CONCENTRATE NEB INH SCH ×7 (00:09→23:30)
[2021-06-22] MEDS: methylPREDNISolone 125MG 2ML VIAL IV SCH ×4 (02:42→20:54)
[2021-06-22 06:00] VITALS: BP 106/88
[2021-06-22 07:15] LABS: HEMATOCRIT 36.5 % (36.0-47.0); HEMOGLOBIN 12.1 g/dl (12.0-15.5); MEAN CORPUSCULAR HGB CONC 33.2 g/dl (32.0-36.5); PLATELET COUNT, AUTOMATED 393 10^3/uL (150-450); WHITE BLOOD COUNT 12.9 10^3/uL (4.0-10.0)
[2021-06-22 07:26] LABS: MEAN CORPUSCULAR VOLUME 117.7 fl (80.0-96.0)
[2021-06-22 07:39] LABS: CREATININE FOR GFR 1.34 MG/DL (0.55-1.30); POTASSIUM SERUM 4.8 MEQ/L (3.5-5.1)
[2021-06-22 08:08] LABS: LYMPHOCYTES 3 % (16-44); MONOCYTES 1 % (0-5); NEUTROPHILS 96 % (28-66); PLATELET ESTIMATE NORMAL (NORMAL)
[2021-06-22] MEDS: DOXYCYCLINE HYCLATE 100 MG in D5W MINI-BAG PLUS 100 ML IV SCH (09:13)
[2021-06-22] MEDS: NICOTINE 21MG/24HR 1 EA TRANSDERMAL TD SCH (09:13)
[2021-06-22] MEDS: ENOXAPARIN 40MG/0.4ML SYRINGE (J1650 PER 10MG) SC SCH (09:14)
[2021-06-22] MEDS: FOLIC ACID 1 MG TAB PO SCH (09:14)
[2021-06-22] MEDS: THIAMINE 100 MG TAB PO SCH (09:14)
[2021-06-22] MEDS: MULTIVITAMINS/MINERALS THERAP 1 TAB PO SCH (09:14)
--- NOTE | 2021-06-22 11:01 | ECHO ---
ECHOCARDIOGRAM DATE OF PROCEDURE: 06/20/2021 Age: 66 Gender: Height: 165 cm Weight: 48 kg REFERRING PROVIDER: Dr. Maya Barnes. PATIENT LOCATION: ED. REASON FOR THE TESTING: Cardiac arrhythmia. 2D MEASUREMENTS: IVS 1.0 cm LV 3.1 cm LVPW 1.0 cm LA 3.4 cm Aorta 2.9 cm DOPPLER MEASUREMENT Peak velocity across the aortic valve 1.3 m/s Peak velocity across the LVOT 0.72 m/s Mitral E 0.60 Mitral A 0.99 with a ratio of 0.6 Maximum tricuspid valve velocity 3.1 m/s 2D COMMENTS: 1. Normal left ventricular size, wall thickness, and normal global left ventricular systolic function. The estimated left ventricular systolic ejection fraction is 60 to 65%. 2. Normal left atrium. Normal right atrium and right ventricle. 3. The atrial septum appeared to be normal without evidence of defect or shunt. 4. Normal aortic root. 5. Trace pericardial effusion noted. No evidence of cardiac tamponade. 6. Minimally calcified aortic valve with normal leaflet excursion. Mildly calcified mitral annulus with normal appearing mitral valve leaflet motion. Normal tricuspid valve and pulmonic valve. DOPPLER: It detects trace mitral regurgitation, mild tricuspid regurgitation, and trace pulmonic regurgitation. The calculated pulmonary artery systolic pressure varies between 40 to 50 mmHg. Abnormal relaxation pattern was noted across the mitral valve leaflets as well as the mitral valve annulus consistent with features of grade 1 left ventricular diastolic dysfunction. IMPRESSION: 1. Normal global left ventricular systolic function. There are some features of grade 1 left ventricular diastolic dysfunction manifested by abnormal relaxation. 2. Aortic valve sclerosis without stenosis or aortic regurgitation. 3. Mitral annulus calcification with trace mitral regurgitation. 4. Mild tricuspid regurgitation with mild pulmonary hypertension. 5. Trace pulmonic regurgitation was also noted. 6. Trace pericardial effusion, no evidence of cardiac tamponade.
[2021-06-22 11:30] VITALS: BP 155/84
[2021-06-22 14:00] VITALS: BP 155/84
--- NOTE | 2021-06-22 15:44 | REP ---
INDICATION: empyema. COMPARISON: Frontal view obtained earlier today TECHNIQUE: PA and lateral FINDINGS: Cardiomediastinal silhouette is unchanged the left-sided thoracotomy tube is unchanged. There is no significant change in appearance of the lung flanagan. No acute patchy parenchymal opacities or pleural effusions have developed. There are chronic lung base changes left greater than right status quo. There is no evidence of a pneumothorax. There is no change in the osseous structures. IMPRESSION: No significant change. <Electronically signed by Clayton Duenas > 06/22/21 [id number]
[2021-06-22 16:00] VITALS: BP 162/92
--- NOTE | 2021-06-22 16:05 | CR ---
CONSULTATION DATE: 06/22/2021 REASON FOR CONSULTATION: The patient is seen at the request of Dr. Humphrey of the Hospitalist Service for an empyema. HISTORY OF PRESENT ILLNESS: The patient is a 66-year-old white female who approximately five days prior to admission started to develop sharp left sided chest pain which by the next morning on Monday progressed to very sharp chest pain not only laterally but anteriorly. It hurt when she took a deep breath. It was a knife-like pain and not a pressure type pain. This is accompanied by a cough with yellow sputum production. She does have a chronic cough smoking about two packs of cigarettes per day. She denies however fever, chills or sweats. She also denies weight loss but rather some weight gain. There has been no dysphagia. She states that she is continuing to be short of breath but has been more short of breath in the last few months. There has been no acute change in her shortness of breath which occurs with moderate physical activity. She is able to get about her house, however without difficulty and walk on a flat. PAST MEDICAL HISTORY: COPD and a remote history of osteomyelitis as a child when she stepped on a nail and had multiple operations on her left foot. She has had alcohol abuse in the past. PAST SURGICAL HISTORY: The above left ankle procedures for her osteomyelitis. ALLERGIES: None. MEDICATIONS AT HOME: None but does admit to taking Adderall that she obtains through a friend to boost her energy. This has only occurred in the last few weeks. HABITS: The above two packs per day smoking of cigarettes. She also indulges in marijuana and alcohol. 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 EXPOSURES: She has three dogs; a Somali Ibanez, a cocker spaniel and a pit bull mix. She also has a cat and she took care of a possum family in her back room over the past year until she gave them away. TRAVEL HISTORY: She has traveled to the [facility] [place] as well as [place] and the [place] as well as the [facility] through residing in [place] for a number of years. FAMILY HISTORY: Mother of asthma and father at 95 of unknown medical reasons. REVIEW OF SYSTEMS: CONSITIUTIONAL: See HPI without fever, chills, sweats or night sweats, without weight loss. EYES: Without diplopia, without amaurosis fugax, without prior jaundice. Does wear glasses. NOSE: Without epistaxis. MOUTH: False teeth. RESPIRATORY: See HPI. CARDIAC: Without prior myocardial infarctions, without tachycardia, without palpitations, without intermittent claudication or peripheral edema. GI: Without nausea, vomiting, diarrhea, constipation, melena or hematochezia, hematemesis or abdominal pain. : Without dysuria or hematuria, or a history of renal stones. ENDOCRINE: Without diabetes or thyroid disease. NEUROLOGIC: Without paresthesias, paralyses or prior seizures. PSYCHIATRIC: Does complain of occasional anxiety but essentially free of pathologic anxieties, depression or psychoses. PHYSICAL EXAMINATION: GENERAL: Well-developed, overweight white female in no acute distress. VITAL SIGNS: Temperature is 97.4 with a heart rate of 88 and sinus rhythm, respiratory rate of 20 without the use of accessory muscles who is 94% saturated on room air. His blood pressure is 155/84. HEENT: Eyes: Pupils equal, round and reactive to light. Extraocular muscles are intact. Sclera are nonicteric. Nose is without deformity. Mouth shows the mucous membranes to be pink and moist. Lips and commissures without lesions. There is no thrush. She has dentures in place. Head is normocephalic. NECK: Supple. There is no jugular venous distention. No subcutaneous emphysema. Trachea is midline. There is no lymphadenopathy or thyromegaly. She has 2+ carotid upstrokes without bruits. LUNGS: Faint rales and coarse rhonchi all on the left side with a component of E to A egophony on the left upper chest posteriorly. Percussion note is full to the diaphragm. The right lung shows normal vesicular sounds without wheezes, rhonchi or rales. CARDIAC: Without murmurs, clicks, gallops or rubs. I cannot feel her PMI. S1 and S2 are normal. ABDOMEN: Soft, nontender. Bowel sounds are positive. There is no hepatomegaly. No CVA tenderness. EXTREMITIES: There is no pretibial edema. There is no calf tenderness. There is no differential swelling of the upper extremities. She has 2+ posterior tibial left pulse and a 2+ dorsalis right pulse. Her left dorsalis pedis and her right posterior tibial pulses are absent. SKIN: Warm, dry and perfused without cyanosis or mottling including that of nailbeds and knees. NEUROLOGIC: Cranial nerves II-XII are intact. Normal gross, gross sensation intact. Gait is not tested. PSYCHIATRIC: She is awake, alert and oriented x3 with appropriate mood and affect and conversational. LABORATORY DATA: Her white count today is 12.9, having been 17.6 on admission on 06/20. Hemoglobin and hematocrit are stable at 12.1 and 36.5, platelet count is 393,000. Differential yesterday showed 91% neutrophils, 2% lymphocytes and 3% monocytes. There are no immature forms, no toxic granulations. Her electrolytes today are normal, however with an elevated BUN and creatinine of 44 and 1.34 which is changed from yesterday of 24 and 1.03. Glucose is 122 with a calcium of 9.0 and a magnesium of 2.0. Troponins have all been less than 0.02. AST and ALT are normal at 22 and 32 respectively. TSH is 5.14, above the upper limit of normal of 3.74. She underwent a thoracentesis yesterday of a left anterior collection which showed a pH of 7.003, a glucose of 32 and an LDH of 878 with a corresponding LDH of 242. She has 7232 white cells which 96% are neutrophils, 3% are mononuclears or lymphocytes. This therefore looks like a hypoglycemic exudative ascitic neutrophilic pleural effusion consistent with an empyema. Her chest x-ray done on admission on 06/20 done portably shows a vague infiltrative opacity in the left lower hemithorax. The costophrenic angles however are sharp. There is no lateral film as it was done portably. Her chest CT angio did not show a pulmonary embolism. It does show an infiltrative process in the apical basilar segment of the left lower lobe as well as a very extensive process in the lateral segments of the lower lobe. She has a fluid collection in the mid hemithorax. There is no pericardial effusion. I do not see any significant lymphadenopathy. She has diffuse emphysematous changes throughout but not as bad as I would expect with her two pack a day history. She underwent a CT guided pigtail catheter drainage of her fluid yesterday. Her post chest x-ray shows improvement in the left lower hemithorax infiltrative process and I do not see a fluid collection on the lateral film nor on the PA film. Her chest today continues to improve. Her microbiology has not grown anything including a sputum culture. She had moderate gram negatives and gram positive rods in her sputum. No organisms were seen in the pleural fluid. She was originally placed on Ceftriaxone but has been discontinued. I do not see where any other antibiotics have been added. She is on Solu-Medrol. IMPRESSION: 1. Left lower lobe pneumonia. 2. Empyema. 3. Tobacco abuse. 4. Prior alcohol abuse. 5. Probable hypothyroidism with an increased TSH. 6. History of gout. PLAN/DISCUSSION: When I was asked yesterday about the collection I suggested that a pigtail catheter would be placed and that has indeed happened. She is recorded as putting out 20 ml out the catheter after initial 20 ml was withdrawn. I will probably obtain a CT scan of her tomorrow to see how much of the collection has resolved, and if not may have to be a TPA pleurolysis. Right now I am surprised that she is not on antibiotics and I will call the Hospitalist Service. I also note that thyroid replacement has not been started.
[2021-06-22] MEDS: cefTRIAXone SOD 1 GM in D5W MINI-BAG PLUS 50 ML IV SCH (17:10)
[2021-06-22] MEDS: BACITRACIN OINTMENT 30GM TUBE TOP SCH (18:15)
[2021-06-22 20:00] VITALS: BP 152/83
--- NOTE | 2021-06-22 20:51 | IPNPDOC ---
Date Seen The patient was seen on 06/22/21. Progress Note SUBJECTIVE: An engorged tick taken off of the patient's right flank today. Fluid from thoracentesis is infectious, CT surgery consulted. She denies fevers, chest pain, nausea, vomiting, increased shortness of breath OBJECTIVE: PHYSICAL EXAMINATION: VITAL SIGNS: See below GENERAL APPEARANCE: No acute distress, standing at the bedside. Awake alert and oriented 3 HEENT: No JVD no thyromegaly bitemporal wasting no cervical lymphadenopathy or stridor dry mucous membranes Poor dentition CARDIOVASCULAR: S1-S2 sinus rhythm l, no murmurs noted LUNGS: Diminished left lower and upper lobe crackles, faint bilateral expiratory wheezing, prolonged expiration, left side pigtail catheter in place ABDOMEN: Positive bowel sounds soft nontender nondistended no rebound or guarding INTEG: Right flank has an engorged tick, flush around where the tick as that is red but does not appear warm, or infected EXTREMITIES: No pitting edema positive clubbing NEURO: Cranial nerves II12 intact, no focal deficits LABORATORY DATA: See below. MICRO: Sputum GS: QUALITY: GOOD MANY WBCS MANY GRAM POSITIVE COCCI IN PAIRS, CHAINS AND CLUSTERS MODERATE GRAM NEGATIVE RODS MODERATE GRAM POSITIVE RODS MODERATE YEAST LIKE ORGANISM Sputum Cx: pending Anaerobic pleural fluid GS, Cx pending Aerobic pleural fluid GS, Cx pending Resp panel: neg Blood cultures x 2 sets: NG to date IMAGING: CT CHEST: 1. No CT evidence of acute pulmonary embolism. 2. No CT evidence of acute thoracic aortic dissection, thoracic aneurysm or acute intramural thoracic aortic hematoma. 3. The heart size is normal. A small anterior pericardial effusion is present. Normal size pulmonary vasculature. No significant coronary artery calcification is present. 4. Mild pulmonary hyperinflation is seen consistent with underlying COPD. In addition, a moderate-sized questionable loculated pleural effusion is seen anterior to the inferior lingula and medial left upper lobe, adjacent to which is a band of peripheral airspace consolidation and interstitial ground-glass densities and thickening of the interlobular pulmonary septa in the inferior lingula and in the lateral left lower lobe, seen on images 33 through 86 of series 402. This might represent a parapneumonic pleural effusion/early empyema versus COVID-19 peripheral pneumonitis versus an underlying neoplasm of the left upper lobe with associated lymphangitis carcinomatosa less likely. 5. The bony structures of the chest are normal for age. 6. These masses have benign features with well-defined la and internal homogeneous low attenuation density of less than 20 Hounsfield units and, in the absence of any history of prior cancer in this patient, are likely small simple cysts or hemangiomas. No further follow-up is recommended. ASSESSMENT: 66-year-old female with a history of COPD not oxygen or steroid-dependent, alcohol abuse, alcohol withdrawal, alcohol withdrawal seizures, gout, tobacco abuse, marijuana abuse, abnormal EKG with right axis deviation admitted for Community acquired PNA, empyema, sepsis, acute COPD exacerbation. PLAN: Left lung empyema, community acquired PNA with sepsis -S/p thoracentesis, pleural fluid contained many poly's, WBC -Much improved today, more comfortable breathing in -, on RA currently -Pleural fluid cx pending, sputum cx growing many organisms -Blood cultures, resp panel neg -F/u GS and cx from all pleural fluid studies, urine Legionella antigen, urine streptococcal antigen -C/w IV ceftriaxone, doxycycline -Oxygen to keep saturations at 88 to 92% -CT surgery consulted and following. CT scan 06/23/21 to see if collection has resolved. If not may have to have TPA pleurolysis. Acute COPD exacerbation -Received Decadron in the ER, much improved on RA -Decreased wheezing b/l -Decreased solumedrol to 60 mg IV Q12 H -C/w nebulizers, O2 supplementation Acute kidney injury -Cr elevated at 1.3, baseline is wnl -Daily labs, avoid nephrotoxic meds Tick bite, not infected -labs studies sent Active tobacco abuse -Tobacco cessation counseling has been provided -Nicotine replacement therapy provided Alcohol abuse with history of alcohol withdrawal,eizures -No s/s of withdrawl -CIWA protocol with Ativan as needed. -We will need to monitor for respiratory acidosis due to acute COPD exacerbation and increased risk of hypercapnic respiratory failure with use of Ativan for withdrawal. -If patient develops respiratory acidosis, will need to change to Librium instead of Ativan for alcohol withdrawal symptoms -Alcohol withdrawal precautions/seizure precautions -Multivitamin ,thiamine, folate Recreational drug use -Admits to previous marijuana use Pulmonary cachexia BMI of 17.5 with protein calorie malnutrition -Jacket Changer consult for supplemental nutrition if needed Benign liver lesions most likely hemangiomas -Outpatient follow-up Abnormal EKG with right axis deviation -Secondary to chronic obstructive pulmonary disease Sinus tachycardia, resolved -Pulmonary embolism ruled out Abnormal TSH -TSH wnl, T3 only mildly incr -Will hold off on treatment as this may be transient Elevated BNP -Most likely due to pulmonary hypertension from longstanding COPD -Does not appear to be volume overloaded clinically -Echo shows no diastolic dysfunction DVT prophylaxis: Lovenox DISPOSITION: CT surgery following. PT/OT ordered. VS, I&O, 24H, Fishbone Vital Signs/I&O Vital Signs Date Time Temp Pulse Resp B/P (MAP) Pulse Ox O2 Delivery O2 Flow Rate FiO2 06/22/21 18:13 92 162/92 06/22/21 16:00 97.8 19 95 Room Air 06/22/21 09:00 2.0 I&O- Last 24 Hours up to 6 AM0 06/22/21 06:00 Intake Total 360 ml Output Total 25 ml Balance 335 ml Laboratory Data 24H LABS Laboratory Tests 2 06/22/21 06:51: Immature Granulocyte % (Auto) , Neutrophils (%) (Auto) , Nucleated Red Blood Cells % (auto) 0.2H, Neutrophils 96H, Lymphocytes (Manual) 3L, Monocytes (Manual) 1, Red Blood Cell Morphology NORMAL, Platelet Estimate NORMAL, Anion Gap 5L, Glomerular Filtration Rate 42.0L, Calcium Level 9.0, Magnesium Level 2.0 06/22/21 10:44: CBC/BMP Laboratory Tests 06/22/21 06:51 Microbiology Microbiology 06/21/21 Acid Fast Stain, Received Pending 06/21/21 Mycobacterial Culture, Received Pending 06/21/21 Fungal Smear, Received Pending 06/21/21 Fungal Culture, Received Pending 06/21/21 Gram Stain - Final, Resulted 06/21/21 Anaerobic Culture, Resulted Pending 06/21/21 Body Fluid Culture, Received Pending 06/20/21 Gram Stain - Final, Resulted 06/20/21 Sputum Culture, Resulted Pending 06/20/21 Respiratory Virus Panel (PCR) (MARK) - Final, Complete 06/20/21 Blood Culture - Preliminary, Resulted No Growth after 48 hours. All Specime... 06/20/21 Blood Culture - Preliminary, Resulted No Growth after 48 hours. All Specime... Jessica Humphrey MD Jun 22, 2021 20:51
[2021-06-22] MEDS: DOXYCYCLINE HYCLATE 100MG TABLET PO SCH (20:54)
[2021-06-22] MEDS ORDERED: LEVALBUTEROL 1.25 MG/0.5 ML CONCENTRATE NEB INH PRN (20:55)
[2021-06-23] VITALS (13 sets, daily range): BP systolic 140–173; BP diastolic 62–96
[2021-06-23] MEDS: METOPROLOL TART 25 MG TABLET PO SCH ×4 (00:57→18:52)
[2021-06-23] MEDS: LEVALBUTEROL 1.25 MG/0.5 ML CONCENTRATE NEB INH SCH ×6 (03:00→23:35)
[2021-06-23 05:43] LABS: BASO # 0.1 10^3/uL (0.0-0.2); BASO % 0.5 % (0.0-1.0); HEMATOCRIT 38.4 % (36.0-47.0); HEMOGLOBIN 12.6 g/dl (12.0-15.5); LYMPH # 0.6 10^3/uL (1.5-5.0); LYMPH % 4.6 % (24.0-44.0); MEAN CORPUSCULAR HEMOGLOBIN 38.9 pg (27.0-33.0); MEAN CORPUSCULAR HGB CONC 32.8 g/dl (32.0-36.5); MONO # 0.9 10^3/uL (0.0-0.8); MONO % 7.3 % (2.0-8.0); NEUTROPHILS # 10.8 10^3/uL (1.5-8.5); NEUTROPHILS % 84.3 % (36.0-66.0); PLATELET COUNT, AUTOMATED 478 10^3/uL (150-450); RED BLOOD COUNT 3.24 10^6/uL (4.00-5.40); WHITE BLOOD COUNT 12.8 10^3/uL (4.0-10.0)
[2021-06-23 05:48] LABS: MEAN CORPUSCULAR VOLUME 118.5 fl (80.0-96.0)
[2021-06-23 06:09] LABS: CREATININE FOR GFR 1.09 MG/DL (0.55-1.30); GLOMERULAR FILTRATION RATE 53.3 (>45); MAGNESIUM LEVEL 1.8 MG/DL (1.8-2.4); POTASSIUM SERUM 3.9 MEQ/L (3.5-5.1)
[2021-06-23 06:23] LABS: PLATELET ESTIMATE NORMAL (NORMAL)
[2021-06-23] MEDS ORDERED: methylPREDNISolone 125MG 2ML VIAL IV SCH (08:00)
--- NOTE | 2021-06-23 08:43 | REP ---
INDICATION: empyema. COMPARISON: Chest x-ray 06/23/2021, 06/22/2021; CTA 06/20/2021 TECHNIQUE: Noncontrast scanning through the chest with coronal and sagittal reconstructions. FINDINGS: Hyperinflation again noted with COPD, a diffuse bullous emphysematous changes and some scattered fibrotic changes throughout. There is improvement in the peripheral consolidation superior segment left lower lobe as well as more inferiorly in the posterior and lateral basal segments of the lower lobe with significant improvement there. There is a pigtail catheter via transthoracic route in the anterolateral left mid lung zone draining the empyema seen on the previous CT. A trace amount of extrapleural air in that space and almost no fluid. Some curvilinear atelectatic changes noted adjacent to this pleural region. There is a small pleural effusion on the left only marginally larger from the previous study. No new infiltrates, atelectasis or other changes on the right. Heart size not grossly enlarged. Trace pericardial thickening or fluid adjacent to the left anterolateral empyema but this is improved. The aorta is without aneurysm. The main, right and left pulmonary arteries are prominent in the mediastinum and consistent with pulmonary artery hypertension. No pathologic sized mediastinal or hilar adenopathy. No axillary or supraclavicular mass. Bone windows show some artifact in the sternum from respiratory motion but there are no acute bone findings compared to previous study. Upper abdominal findings unchanged. IMPRESSION: 1. Left anterolateral pigtail drain has nearly completely evacuated the empyema in the left upper lobe with only trace fluid and extrapleural air. Adjacent curvilinear atelectatic change in the left upper lobe noted. Infiltrates in the left lower lobe are much improved and there is a small left pleural effusion with minimal increase since 06/20/2021. 2. Advanced bullous emphysematous changes with COPD, pulmonary artery hypertension and some underlying fibrosis, stable. 3. The anterolateral pericardial thickening or fluid on the left side adjacent to the empyema has decreased. Cardiomediastinal silhouette and contents otherwise unchanged. 4. Bony thorax and upper abdominal contents unchanged. <Electronically signed by Rajendra Schultz > 06/23/21 [id number]
[2021-06-23] MEDS: FOLIC ACID 1 MG TAB PO SCH (09:11)
[2021-06-23] MEDS: ENOXAPARIN 40MG/0.4ML SYRINGE (J1650 PER 10MG) SC SCH (09:11)
[2021-06-23] MEDS: THIAMINE 100 MG TAB PO SCH (09:11)
[2021-06-23] MEDS: DOXYCYCLINE HYCLATE 100MG TABLET PO SCH (09:11)
[2021-06-23] MEDS: MULTIVITAMINS/MINERALS THERAP 1 TAB PO SCH (09:11)
[2021-06-23] MEDS: NICOTINE 21MG/24HR 1 EA TRANSDERMAL TD SCH (09:12)
[2021-06-23] MEDS: BACITRACIN OINTMENT 30GM TUBE TOP SCH (09:12)
--- NOTE | 2021-06-23 09:21 | REP ---
INDICATION: empyema. COMPARISON: 06/22/2021, 06/21/2021 TECHNIQUE: PA lateral FINDINGS: Percutaneous pigtail drainage catheter anterolateral left mid chest again noted. Small amount of air adjacent to the catheter in the extrapleural space and some adjacent atelectasis or infiltrate in the left mid lung zone. Slightly improved inflation of the left lower lobe and small left effusion suggested with blunting of CP angle. Right lung unchanged with underlying COPD and some fibrotic changes. IMPRESSION: 1. Pigtail drain catheter in the anterolateral left mid lung zone in the upper lobe with small amount of pleural air and the loculated fluid collection not reaccumulating by radiograph. Improvement in aeration of the lower lobe but still with some patchy densities and blunting of CP angle suggesting small effusion. 2. Underlying COPD and fibrosis otherwise unchanged. <Electronically signed by Rajendra Schultz > 06/23/21 [id number]
--- NOTE | 2021-06-23 12:04 | IPN ---
PROGRESS NOTE DATE: 06/23/2021 SUBJECTIVE: Ms. Live is doing quite well although she is short of breath from her underlying COPD. Her vital signs shows a T-max of 97.5 with a heart rate that ranges between 89 and 106 and is sinus rhythm, respiratory rate is 17 to 20 without the use of accessory muscles who is 91 to 95% saturated on room air and blood pressure is ranging between 171/94 to 140/82. Her intake and output over the past 24 hours has been recorded as 1150 and 355 out for a positivity of 790 ml. She has put out 6 ml from the chest tube and there is no air leak. Her weight today is 59.5 kilos, compared to 53 kilos on 06/20. OBJECTIVE: She has some faint rales and rhonchi in the left upper hemithorax. Percussion note is full to the diaphragm. Cardiac exam is without murmurs, clicks, gallops or rubs. I cannot feel her PMI. S1 and S2 are normal. Abdomen is soft and nontender. Bowel sounds are positive. There is no hepatomegaly. No CVA tenderness. Extremities show no pretibial edema. No calf tenderness. There is no differential swelling of the upper extremities. Her skin is warm, dry and perfused without cyanosis or mottling including that of nail beds and knees. Neck is supple. There is no jugular venous distention. No subcutaneous emphysema. Trachea is midline. Mouth shows her mucous membranes to be pink and moist. Lips and commissures without lesions. No thrush. Eyes shows the pupils equal and reactive. Extraocular motions intact. Sclera are nonicteric. Neurologic: Cranial nerves II-XII are intact. Normal gross motor, gross sensation intact. Gait is not tested. Psychiatric showed him to be awake, alert and oriented x3 with appropriate mood and affect and conversational. Her white count today is 12.8, unchanged from yesterday with a hemoglobin and hematocrit of 12.6 and 38.4, essentially unchanged from yesterday. Platelet count is 478,000 and stable. Differential shows 84% neutrophils, 4% lymphocytes and 7 monocytes. There are no immature forms for toxic granulations. Her electrolytes are normal with a BUN and creatinine that have normalized to 45 and 1.09 respectively with a glucose of 118 and a calcium of 9. Her chest x-ray today shows a vague haze in the left lower hemithorax. Costophrenic angle on the left is only slightly blunted. Her chest CT done this morning shows the cavity all but obliterated. She still has small apical basilar segment infiltrate along with improving infiltrate in the lower lobe. She is now back on Ceftriaxone as an antibiotic. IMPRESSION: 1. Left lower lobe pneumonia. 2. Empyema. 3. Tobacco abuse. 4. Prior alcohol use. 5. Possible hypothyroidism with an increased TSH. 6. History of gout. 7. Renal insufficiency, resolved. PLAN/DISCUSSION: Her chest CT shows the obliterated cavity with the pigtail catheter within it. There is little if any drainage coming from the tube. I will therefore remove the tube. She is now back on antibiotics. I am grateful that her creatinine elevation yesterday is now resolved. As her empyema is resolved and drained, I will therefore withdraw from the case, to be available on as needed basis. She should be followed up by her primary care physicians and should not need to come back to the office to see me after discharge.
--- NOTE | 2021-06-23 14:04 | IPNPDOC ---
Date Seen The patient was seen on 06/23/21. Progress Note SUBJECTIVE: Improved CT, pigtail catheter to be taken out by CT surgery. She denies fevers, chest pain, nausea, vomiting, increased shortness of breath OBJECTIVE: PHYSICAL EXAMINATION: VITAL SIGNS: See below GENERAL APPEARANCE: No acute distress, standing at the bedside. Awake alert and oriented 3 HEENT: No JVD no thyromegaly bitemporal wasting no cervical lymphadenopathy or stridor dry mucous membranes Poor dentition CARDIOVASCULAR: S1-S2 sinus rhythm l, no murmurs noted LUNGS: Diminished left lower and upper lobe crackles/faint rhonchi, left side pigtail catheter in place ABDOMEN: Positive bowel sounds soft nontender nondistended no rebound or guarding INTEG: Right flank area where tick was found, erythema but not warm to touch, nontender EXTREMITIES: No pitting edema positive clubbing NEURO: Cranial nerves II12 intact, no focal deficits LABORATORY DATA: See below. MICRO: Sputum GS: QUALITY: GOOD MANY WBCS MANY GRAM POSITIVE COCCI IN PAIRS, CHAINS AND CLUSTERS MODERATE GRAM NEGATIVE RODS MODERATE GRAM POSITIVE RODS MODERATE YEAST LIKE ORGANISM Sputum Cx: ENTEROBACTER AEROGENES PASTEURELLA MULTOCIDA Anaerobic pleural fluid GS, Cx: NG Aerobic pleural fluid GS, Cx: NG Resp panel: neg Blood cultures x 2 sets: NG to date IMAGING: CT chest 06/23/21: 1. Left anterolateral pigtail drain has nearly completely evacuated the empyema in the left upper lobe with only trace fluid and extrapleural air. Adjacent curvilinear atelectatic change in the left upper lobe noted. Infiltrates in the left lower lobe are much improved and there is a small left pleural effusion with minimal increase since 06/20/2021. 2. Advanced bullous emphysematous changes with COPD, pulmonary artery hypertension and some underlying fibrosis, stable. 3. The anterolateral pericardial thickening or fluid on the left side adjacent to the empyema has decreased. Cardiomediastinal silhouette and contents otherwise unchanged. 4. Bony thorax and upper abdominal contents unchanged. CT CHEST: 1. No CT evidence of acute pulmonary embolism. 2. No CT evidence of acute thoracic aortic dissection, thoracic aneurysm or acute intramural thoracic aortic hematoma. 3. The heart size is normal. A small anterior pericardial effusion is present. Normal size pulmonary vasculature. No significant coronary artery calcification is present. 4. Mild pulmonary hyperinflation is seen consistent with underlying COPD. In addition, a moderate-sized questionable loculated pleural effusion is seen anterior to the inferior lingula and medial left upper lobe, adjacent to which is a band of peripheral airspace consolidation and interstitial ground-glass densities and thickening of the interlobular pulmonary septa in the inferior lingula and in the lateral left lower lobe, seen on images 33 through 86 of series 402. This might represent a parapneumonic pleural effusion/early empyema versus COVID-19 peripheral pneumonitis versus an underlying neoplasm of the left upper lobe with associated lymphangitis carcinomatosa less likely. 5. The bony structures of the chest are normal for age. 6. These masses have benign features with well-defined la and internal homogeneous low attenuation density of less than 20 Hounsfield units and, in the absence of any history of prior cancer in this patient, are likely small simple cysts or hemangiomas. No further follow-up is recommended. ASSESSMENT: 66-year-old female with a history of COPD not oxygen or steroid-dependent, alcohol abuse, alcohol withdrawal, alcohol withdrawal seizures, gout, tobacco abuse, marijuana abuse, abnormal EKG with right axis deviation admitted for Community acquired PNA, empyema, sepsis, acute COPD exacerbation. PLAN: Left lung empyema, Enterobacter aerogenes and Pasteurella community acquired PNA with sepsis -WBC improving, RA -Micro with sputum cx above, + enterobacter aerogenes and pasteurella -S/p thoracentesis, pleural fluid contained many poly's, WBC -C/w IV ceftriaxone, will d/c doxycycline based off sensitivities -Oxygen to keep saturations at 88-92% -CT surgery signed off due to much improved CT scan 06/23/21 and removal of pigtail catheter. Acute COPD exacerbation -IMproving on RA -Decreased I V solumedrol further today -C/w nebulizers, O2 supplementation Acute kidney injury- resolved -Cr wnl, at baseline -Daily labs, avoid nephrotoxic meds Tick bite, not infected -labs studies sent Active tobacco abuse -Tobacco cessation counseling has been provided -Nicotine patch Alcohol abuse with history of alcohol withdrawal,eizures -No s/s of withdrawl -CIWA protocol with Ativan as needed. -We will need to monitor for respiratory acidosis due to acute COPD exacerbation and increased risk of hypercapnic respiratory failure with use of Ativan for withdrawal. -If patient develops respiratory acidosis, will need to change to Librium inst ead of Ativan for alcohol withdrawal symptoms -Alcohol withdrawal precautions/seizure precautions -Multivitamin ,thiamine, folate Recreational drug use -Admits to previous marijuana use Pulmonary cachexia BMI of 17.5 with protein calorie malnutrition -Beater Engineer Helper consult for supplemental nutrition if needed Benign liver lesions most likely hemangiomas -Outpatient follow-up Abnormal EKG with right axis deviation -Secondary to chronic obstructive pulmonary disease Sinus tachycardia, resolved -Pulmonary embolism ruled out Abnormal TSH -TSH wnl, T3 only mildly incr -Will hold off on treatment as this may be transient Elevated BNP -Most likely due to pulmonary hypertension from longstanding COPD -Does not appear to be volume overloaded clinically -Echo shows no diastolic dysfunction DVT prophylaxis: Lovenox DISPOSITION: CT surgery has signed off. PT/OT ordered, f/u recs. VS, I&O, 24H, Fishbone Vital Signs/I&O Vital Signs Date Time Temp Pulse Resp B/P (MAP) Pulse Ox O2 Delivery O2 Flow Rate FiO2 06/23/21 12:58 100 173/92 06/23/21 07:56 97.2 20 91 Room Air 06/22/21 20:00 2.0 I&O- Last 24 Hours up to 6 AM 06/23/21 06:00 Intake Total 1150 ml Output Total 360 ml Balance 790 ml Laboratory Data 24H LABS Laboratory Tests 2 06/23/21 05:29: Immature Granulocyte % (Auto) 3.3H, Neutrophils (%) (Auto) 84.3H, Lymphocytes (%) (Auto) 4.6L, Monocytes (%) (Auto) 7.3, Eosinophils (%) (Auto) 0.0, Basophils (%) (Auto) 0.5, Neutrophils # (Auto) 10.8H, Lymphocytes # (Auto) 0.6L, Monocytes # (Auto) 0.9H, Eosinophils # (Auto) 0.0, Basophils # (Auto) 0.1, Nucleated Red Blood Cells % (auto) 0.3H, Platelet Estimate NORMAL, Macrocytosis 1+, Anion Gap 4L, Glomerular Filtration Rate 53.3, Calcium Level 9.0, Magnesium Level 1.8 CBC/BMP Laboratory Tests 06/23/21 05:29 Microbiology Microbiology 06/21/21 Acid Fast Stain, Received Pending 06/21/21 Mycobacterial Culture, Received Pending 06/21/21 Fungal Smear, Received Pending 06/21/21 Fungal Culture, Received Pending 06/21/21 Gram Stain - Final, Complete 06/21/21 Anaerobic Culture - Final, Complete 06/21/21 Body Fluid Culture - Final, Complete 06/20/21 Gram Stain - Final, Complete 06/20/21 Sputum Culture - Final, Complete Enterobacter Aerogenes Pasteurella Multocida 06/20/21 Respiratory Virus Panel (PCR) ([facility]) - Final, Complete 06/20/21 Blood Culture - Preliminary, Resulted No Growth after 72 hours. All specime... 06/20/21 Blood Culture - Preliminary, Resulted No Growth after 72 hours. All specime... Jessica Humphrey MD Jun 23, 2021 14:04
[2021-06-23] MEDS: FUROSEMIDE 40MG/4ML VIAL (J1940) IV SCH (17:16)
[2021-06-23] MEDS: cefTRIAXone SOD 1 GM in D5W MINI-BAG PLUS 50 ML IV SCH (17:16)
[2021-06-24] VITALS (13 sets, daily range): BP systolic 104–175; BP diastolic 70–95
[2021-06-24] MEDS: METOPROLOL TART 25 MG TABLET PO SCH ×4 (01:02→18:00)
[2021-06-24] MEDS: LEVALBUTEROL 1.25 MG/0.5 ML CONCENTRATE NEB INH SCH ×5 (03:30→19:44)
[2021-06-24 05:49] LABS: BASO # 0.1 10^3/uL (0.0-0.2); BASO % 0.7 % (0.0-1.0); EOS # 0.1 10^3/uL (0.0-0.5); EOS % 0.9 % (0.0-3.0); HEMATOCRIT 37.5 % (36.0-47.0); HEMOGLOBIN 12.5 g/dl (12.0-15.5); LYMPH # 1.6 10^3/uL (1.5-5.0); LYMPH % 9.6 % (24.0-44.0); MEAN CORPUSCULAR HEMOGLOBIN 38.8 pg (27.0-33.0); MEAN CORPUSCULAR HGB CONC 33.3 g/dl (32.0-36.5); MONO # 1.5 10^3/uL (0.0-0.8); MONO % 8.9 % (2.0-8.0); NEUTROPHILS # 12.6 10^3/uL (1.5-8.5); NEUTROPHILS % 76.6 % (36.0-66.0); PLATELET COUNT, AUTOMATED 485 10^3/uL (150-450); RED BLOOD COUNT 3.22 10^6/uL (4.00-5.40); WHITE BLOOD COUNT 16.5 10^3/uL (4.0-10.0)
[2021-06-24 05:54] LABS: MEAN CORPUSCULAR VOLUME 116.5 fl (80.0-96.0)
[2021-06-24 06:12] LABS: CREATININE FOR GFR 1.02 MG/DL (0.55-1.30); GLOMERULAR FILTRATION RATE 57.5 (>45); MAGNESIUM LEVEL 1.4 MG/DL (1.8-2.4)
[2021-06-24 06:55] LABS: PLATELET ESTIMATE NORMAL (NORMAL)
[2021-06-24] MEDS ORDERED: methylPREDNISolone 125MG 2ML VIAL IV SCH (09:00)
--- NOTE | 2021-06-24 09:45 | REP ---
INDICATION: empyema. COMPARISON: Yesterday at 7:39 a.m. TECHNIQUE: PA and lateral FINDINGS: The left-sided thoracotomy tube is been removed. The cardiomediastinal silhouette and lung flanagan are unchanged. Persistent opacities on the left status quo. No new abnormal opacities. No change in the osseous structures. IMPRESSION: Removal of the left-sided thoracotomy tube. Otherwise, no significant change other than technique. <Electronically signed by Clayton Duenas > 06/24/21 0917
[2021-06-24] MEDS: NICOTINE 21MG/24HR 1 EA TRANSDERMAL TD SCH (10:02)
[2021-06-24] MEDS: FUROSEMIDE 40MG/4ML VIAL (J1940) IV SCH (10:02)
[2021-06-24] MEDS: MULTIVITAMINS/MINERALS THERAP 1 TAB PO SCH (10:03)
[2021-06-24] MEDS: ENOXAPARIN 40MG/0.4ML SYRINGE (J1650 PER 10MG) SC SCH (10:03)
[2021-06-24] MEDS: amLODIPine 5 MG TAB PO SCH (10:04)
[2021-06-24] MEDS: predniSONE 20 MG TAB PO SCH (10:05)
[2021-06-24] MEDS: FOLIC ACID 1 MG TAB PO SCH (10:05)
[2021-06-24] MEDS: THIAMINE 100 MG TAB PO SCH (10:05)
[2021-06-24] MEDS: BACITRACIN OINTMENT 30GM TUBE TOP SCH (10:06)
--- NOTE | 2021-06-24 13:35 | IPNPDOC ---
Date Seen The patient was seen on 06/24/21. Progress Note SUBJECTIVE: Afebrile but WBC increased. Repeat CXR today does not show changes. She denies fevers, chest pain, nausea, vomiting, increased shortness of breath OBJECTIVE: PHYSICAL EXAMINATION: VITAL SIGNS: See below GENERAL APPEARANCE: No acute distress, standing at the bedside. Awake alert and oriented 3 HEENT: No JVD no thyromegaly bitemporal wasting no cervical lymphadenopathy or stridor dry mucous membranes,Poor dentition CARDIOVASCULAR: S1-S2 sinus rhythm l, no murmurs noted LUNGS: Diminished left lower and upper lobe crackles/faint rhonchi, prior left side pigtail catheter site appears well healing ABDOMEN: Positive bowel sounds soft nontender nondistended no rebound or guardin g INTEG: Right flank area where tick was found, decreased erythema but not warm to touch, nontender EXTREMITIES: No pitting edema. positive clubbing NEURO: Cranial nerves II12 intact, no focal deficits LABORATORY DATA: See below. MICRO: Sputum GS: QUALITY: GOOD MANY WBCS MANY GRAM POSITIVE COCCI IN PAIRS, CHAINS AND CLUSTERS MODERATE GRAM NEGATIVE RODS MODERATE GRAM POSITIVE RODS MODERATE YEAST LIKE ORGANISM Sputum Cx: ENTEROBACTER AEROGENES PASTEURELLA MULTOCIDA Anaerobic pleural fluid GS, Cx: NG Aerobic pleural fluid GS, Cx: NG Resp panel: neg Blood cultures x 2 sets: NG to date Tick specimen sent out for testing- pending IMAGING: Echocardiogram: 1. Normal global left ventricular systolic function. There are some features of grade 1 left ventricular diastolic dysfunction manifested by abnormal relaxation. 2. Aortic valve sclerosis without stenosis or aortic regurgitation. 3. Mitral annulus calcification with trace mitral regurgitation. 4. Mild tricuspid regurgitation with mild pulmonary hypertension. 5. Trace pulmonic regurgitation was also noted. 6. Trace pericardial effusion, no evidence of cardiac tamponade. CT chest 06/23/21: 1. Left anterolateral pigtail drain has nearly completely evacuated the empyema in the left upper lobe with only trace fluid and extrapleural air. Adjacent curvilinear atelectatic change in the left upper lobe noted. Infiltrates in the left lower lobe are much improved and there is a small left pleural effusion with minimal increase since 06/20/2021. 2. Advanced bullous emphysematous changes with COPD, pulmonary artery hypertension and some underlying fibrosis, stable. 3. The anterolateral pericardial thickening or fluid on the left side adjacent to the empyema has decreased. Cardiomediastinal silhouette and contents otherwise unchanged. 4. Bony thorax and upper abdominal contents unchanged. CT CHEST: 1. No CT evidence of acute pulmonary embolism. 2. No CT evidence of acute thoracic aortic dissection, thoracic aneurysm or acute intramural thoracic aortic hematoma. 3. The heart size is normal. A small anterior pericardial effusion is present. Normal size pulmonary vasculature. No significant coronary artery calcification is present. 4. Mild pulmonary hyperinflation is seen consistent with underlying COPD. In addition, a moderate-sized questionable loculated pleural effusion is seen anterior to the inferior lingula and medial left upper lobe, adjacent to which is a band of peripheral airspace consolidation and interstitial ground-glass densities and thickening of the interlobular pulmonary septa in the inferior lingula and in the lateral left lower lobe, seen on images 33 through 86 of series 402. This might represent a parapneumonic pleural effusion/early empyema versus COVID-19 peripheral pneumonitis versus an underlying neoplasm of the left upper lobe with associated lymphangitis carcinomatosa less likely. 5. The bony structures of the chest are normal for age. 6. These masses have benign features with well-defined la and internal homogeneous low attenuation density of less than 20 Hounsfield units and, in the absence of any history of prior cancer in this patient, are likely small simple cysts or hemangiomas. No further follow-up is recommended. ASSESSMENT: 66-year-old female with a history of COPD not oxygen or steroid-dependent, alcohol abuse, alcohol withdrawal, alcohol withdrawal seizures, gout, tobacco abuse, marijuana abuse, abnormal EKG with right axis deviation admitted for Community acquired PNA, empyema, sepsis, acute COPD exacerbation. PLAN: Left lung empyema, Enterobacter aerogenes and Pasteurella community acquired PNA with sepsis -WBC increased from 12.8--> 16.5- concerning -Is afebrile and remains on RA, denies incr SOB -CXR today: no change -Micro with sputum cx above, + enterobacter aerogenes and pasteurella -S/p thoracentesis, pleural fluid contained many poly's, WBC -C/w IV ceftriaxone, d/narinder doxycycline 06/23/21 -F/u AM CBC, if does not worsen or improves will consider d/c. If worsens, consider ID consult. -Oxygen to keep saturations at 88-92% -CT surgery signed off due to much improved CT scan 06/23/21 and removal of pigtail catheter 06/23/21. Acute COPD exacerbation- RESOLVED -Remains on RA -stopped IV solumedrol -C/w PO prednisone, nebulizers, O2 supplementation HFpEF with mild exacerbation-improved -BNP elevated >1000 -Echo above -C/w lasix, CCB, 2 gm sodium diet, I&O HTN -Improved today -C/w lasix, CCB Tick bite, site not infected -tick studies pending Active tobacco abuse -Tobacco cessation counseling has been provided -Nicotine patch started. She would like to continue at discharge. Alcohol abuse with history of alcohol withdrawal, seizures -No s/s of withdrawl -CIWA protocol with Ativan PRN, multivitamin ,thiamine, folate -Alcohol withdrawal precautions/seizure precautions Pulmonary cachexia BMI of 17.5 with protein calorie malnutrition -Sealer Operator has consulted. Benign liver lesions most likely hemangiomas -Outpatient follow-up Abnormal EKG with right axis deviation -Secondary to chronic obstructive pulmonary disease Sinus tachycardia, resolved -Pulmonary embolism ruled out Abnormal TSH -TSH wnl, T3 only mildly incr -Will hold off on treatment as this may be transient Elevated BNP -Most likely due to pulmonary hypertension from longstanding COPD -Does not appear to be volume overloaded clinically -Echo shows no diastolic dysfunction DVT prophylaxis: Lovenox RESOLVED: Acute kidney injury Acute COPD exacerbation DISPOSITION: CT surgery has signed off. PT: cleared for home when medically improved. VS, I&O, 24H, Fishbone Vital Signs/I&O Vital Signs Date Time Temp Pulse Resp B/P (MAP) Pulse Ox O2 Delivery O2 Flow Rate FiO2 06/24/21 13:00 108 121/73 06/24/21 08:00 96.4 18 90 Room Air 06/22/21 20:00 2.0 I&O- Last 24 Hours up to 6 AM 06/24/21 06:00 Intake Total 650 ml Output Total 400 ml Balance 250 ml Laboratory Data 24H LABS Laboratory Tests 2 06/24/21 05:30: Immature Granulocyte % (Auto) 3.3H, Neutrophils (%) (Auto) 76.6H, Lymphocytes (%) (Auto) 9.6L, Monocytes (%) (Auto) 8.9H, Eosinophils (%) (Auto) 0.9, Basophils (%) (Auto) 0.7, Neutrophils # (Auto) 12.6H, Lymphocytes # (Auto) 1.6, Monocytes # (Auto) 1.5H, Eosinophils # (Auto) 0.1, Basophils # (Auto) 0.1, Nucleated Red Blood Cells % (auto) 0.0, Platelet Estimate NORMAL, Macrocytosis 3+, Anion Gap 7L, Glomerular Filtration Rate 57.5, Calcium Level 8.0L, Magnesium Level 1.4L 06/24/21 12:57: Bedside Glucose (Misc Panel) 136H CBC/BMP Laboratory Tests 06/24/21 05:30 Microbiology Microbiology 06/21/21 Acid Fast Stain, Received Pending 06/21/21 Mycobacterial Culture, Received Pending 06/21/21 Fungal Smear, Received Pending 06/21/21 Fungal Culture, Received Pending 06/21/21 Gram Stain - Final, Complete 06/21/21 Anaerobic Culture - Final, Complete 06/21/21 Body Fluid Culture - Final, Complete 06/20/21 Gram Stain - Final, Complete 06/20/21 Sputum Culture - Final, Complete Enterobacter Aerogenes Pasteurella Multocida 06/20/21 Respiratory Virus Panel (PCR) ([facility]) - Final, Complete 06/20/21 Blood Culture - Preliminary, Resulted No Growth after 72 hours. All specime... 06/20/21 Blood Culture - Preliminary, Resulted No Growth after 72 hours. All specime... Jessica Humphrey MD Jun 24, 2021 13:35
[2021-06-24] MEDS: cefTRIAXone SOD 1 GM in D5W MINI-BAG PLUS 50 ML IV SCH (17:18)
[2021-06-25] VITALS (7 sets, daily range): BP systolic 118–148; BP diastolic 58–96
[2021-06-25] MEDS: METOPROLOL TART 25 MG TABLET PO SCH ×4 (00:50→17:38)
[2021-06-25] MEDS: LEVALBUTEROL 1.25 MG/0.5 ML CONCENTRATE NEB INH SCH ×7 (03:24→23:26)
[2021-06-25 04:07] LABS: HEMATOCRIT 37.3 % (36.0-47.0); HEMOGLOBIN 12.9 g/dl (12.0-15.5); MEAN CORPUSCULAR HEMOGLOBIN 39.8 pg (27.0-33.0); MEAN CORPUSCULAR HGB CONC 34.6 g/dl (32.0-36.5); PLATELET COUNT, AUTOMATED 509 10^3/uL (150-450); RED BLOOD COUNT 3.24 10^6/uL (4.00-5.40); WHITE BLOOD COUNT 17.3 10^3/uL (4.0-10.0)
[2021-06-25 04:08] LABS: BASO # 0.1 10^3/uL (0.0-0.2); BASO % 0.8 % (0.0-1.0); EOS # 0.1 10^3/uL (0.0-0.5); EOS % 0.5 % (0.0-3.0); LYMPH # 1.6 10^3/uL (1.5-5.0); LYMPH % 9.1 % (24.0-44.0); MONO # 1.3 10^3/uL (0.0-0.8); MONO % 7.6 % (2.0-8.0); NEUTROPHILS # 13.4 10^3/uL (1.5-8.5); NEUTROPHILS % 77.8 % (36.0-66.0)
[2021-06-25 04:13] LABS: MEAN CORPUSCULAR VOLUME 115.1 fl (80.0-96.0)
[2021-06-25 04:24] LABS: CALCIUM LEVEL 8.4 MG/DL (8.8-10.2); CREATININE FOR GFR 1.01 MG/DL (0.55-1.30); GLOMERULAR FILTRATION RATE 58.2 (>45); MAGNESIUM LEVEL 1.6 MG/DL (1.8-2.4); POTASSIUM SERUM 4.1 MEQ/L (3.5-5.1)
[2021-06-25] MEDS ORDERED: ISOVUE-370 76% 100ML VIAL As Ordered ONE (08:35)
--- NOTE | 2021-06-25 09:31 | REP ---
INDICATION: empyema. COMPARISON: Yesterday at 7:41 a.m. TECHNIQUE: PA and lateral FINDINGS: The cardiomediastinal silhouette is unchanged. Patchy left lower lobe opacities and mild patchy left upper lobe opacities status quo. Chronic left CP angle blunting status quo. Mild chronic right basilar changes status quo. IMPRESSION: Stable chest <Electronically signed by Clayton Duenas > 06/25/21 0927
[2021-06-25] MEDS: FUROSEMIDE 40MG/4ML VIAL (J1940) IV SCH (09:44)
[2021-06-25] MEDS: MAGNESIUM OXIDE 400MG TAB (MAG-OX) PO SCH ×2 (09:45→20:29)
[2021-06-25] MEDS: ENOXAPARIN 40MG/0.4ML SYRINGE (J1650 PER 10MG) SC SCH (09:45)
[2021-06-25] MEDS: BACITRACIN OINTMENT 30GM TUBE TOP SCH (09:45)
[2021-06-25] MEDS: amLODIPine 5 MG TAB PO SCH (09:46)
[2021-06-25] MEDS: FOLIC ACID 1 MG TAB PO SCH (09:46)
[2021-06-25] MEDS: MULTIVITAMINS/MINERALS THERAP 1 TAB PO SCH (09:46)
[2021-06-25] MEDS: THIAMINE 100 MG TAB PO SCH (09:46)
[2021-06-25] MEDS: predniSONE 20 MG TAB PO SCH (09:46)
[2021-06-25] MEDS: NICOTINE 21MG/24HR 1 EA TRANSDERMAL TD SCH (09:46)
--- NOTE | 2021-06-25 10:33 | REP ---
INDICATION: r/o PE, recent empyema. COMPARISON: Chest x-ray 06/25/2021, 06/24/2021, 06/23/2021; CT without 06/23/2021. TECHNIQUE: CT angiogram chest performed following the intravenous administration of 75 cc of Isovue 370. Sagittal and coronal standard and MIP reconstruction images are performed. FINDINGS: Lungs: There has been interval removal of the left pigtail drain catheter. Small amount of the extrapleural air is seen and trace extrapleural fluid in this region. There is adjacent atelectasis and patchy infiltrates in the anterior segment of the left upper lobe as well as posterior to the diaphragm in the superior segment of the left lower lobe. Some areas are stable but others have more atelectasis or infiltrate laterally and there is interval increase in the size of the small left effusion layering posteriorly. Curvilinear fibrotic change medially in the anterior left upper lobe as before the right lung is unchanged. Underlying COPD and fibrosis again seen. There is no hiatal hernia. Mediastinum: No pathologic sized mediastinal or hilar adenopathy. Pulmonary arteries: There is no pulmonary artery filling defect to suggest embolism. No vessel cut off. Prominent central pulmonary arteries suggesting pulmonary artery hypertension on the basis of COPD Linda: No adenopathy. Axilla: No adenopathy. Pleura: The small left pleural effusion is increased in size over the last 2 days. Has a 1.4 cm thickness midclavicular line at the level of the rocio and ended 3 cm below the rocio on the previous study. Pleural thickening, some extrapleural fluid and adjacent subpleural and pleural reaction in the anterolateral left lung with interval removal of the pleural drain catheter. Overall increase in parenchymal findings in this region. Heart: Not enlarged but there is some pericardial fluid or pericardial reaction anterolaterally on the left at the site of the empyema in inflammatory change in the lung flanagan. Thoracic aorta: No aneurysm or dissection. Upper abdominal structures: Unremarkable. Visualized osseous structures: Stable examination with no new or acute finding. IMPRESSION: 1. Interval removal of the left anterolateral pigtail pleural drain catheter with trace extrapleural air and small amount of the fluid in the subpleural space. There is pleural reaction and increased adjacent atelectasis or infiltrate in the left upper and lower lobes and an increase in the small left pleural effusion. 2. No CT evidence of pulmonary thromboembolism. 3. No aortic aneurysm or dissection. No other significant change. <Electronically signed by Rajendra Schultz > 06/25/21 [id number]
--- NOTE | 2021-06-25 13:32 | IPNPDOC ---
Date Seen The patient was seen on 06/25/21. Progress Note SUBJECTIVE: Afebrile, WBC continue to increase. O2 lower than previously, repeat CT scan today with contrast. She denies fevers, chest pain, nausea, vomiting, increased shortness of breath. OBJECTIVE: PHYSICAL EXAMINATION: VITAL SIGNS: See below GENERAL APPEARANCE: No acute distress, standing at the bedside. Awake alert and oriented 3 HEENT: No JVD no thyromegaly bitemporal wasting no cervical lymphadenopathy or stridor dry mucous membranes,Poor dentition CARDIOVASCULAR: S1-S2 sinus rhythm l, no murmurs noted LUNGS: Diminished left lower and upper lobe crackles/faint rhonchi, prior left side pigtail catheter site appears well healing ABDOMEN: Positive bowel sounds soft nontender nondistended no rebound or guarding INTEG: Right flank area where tick was found, decreased erythema but not warm to touch, nontender EXTREMITIES: No pitting edema. positive clubbing NEURO: Cranial nerves II12 intact, no focal deficits LABORATORY DATA: See below. MICRO: Sputum Cx: ENTEROBACTER AEROGENES PASTEURELLA MULTOCIDA Anaerobic pleural fluid GS, Cx: NG Aerobic pleural fluid GS, Cx: NG Resp panel: neg Blood cultures x 2 sets: NG to date MRSA neg IMAGING: CTA chest: f/u report after completion Echocardiogram: 1. Normal global left ventricular systolic function. There are some features of grade 1 left ventricular diastolic dysfunction manifested by abnormal relaxation. 2. Aortic valve sclerosis without stenosis or aortic regurgitation. 3. Mitral annulus calcification with trace mitral regurgitation. 4. Mild tricuspid regurgitation with mild pulmonary hypertension. 5. Trace pulmonic regurgitation was also noted. 6. Trace pericardial effusion, no evidence of cardiac tamponade. CT chest 06/23/21: 1. Left anterolateral pigtail drain has nearly completely evacuated the empyema in the left upper lobe with only trace fluid and extrapleural air. Adjacent curvilinear atelectatic change in the left upper lobe noted. Infiltrates in the left lower lobe are much improved and there is a small left pleural effusion with minimal increase since 06/20/2021. 2. Advanced bullous emphysematous changes with COPD, pulmonary artery hypertension and some underlying fibrosis, stable. 3. The anterolateral pericardial thickening or fluid on the left side adjacent to the empyema has decreased. Cardiomediastinal silhouette and contents otherwise unchanged. 4. Bony thorax and upper abdominal contents unchanged. CT CHEST: 1. No CT evidence of acute pulmonary embolism. 2. No CT evidence of acute thoracic aortic dissection, thoracic aneurysm or acute intramural thoracic aortic hematoma. 3. The heart size is normal. A small anterior pericardial effusion is present. Normal size pulmonary vasculature. No significant coronary artery calcification is present. 4. Mild pulmonary hyperinflation is seen consistent with underlying COPD. In addition, a moderate-sized questionable loculated pleural effusion is seen anterior to the inferior lingula and medial left upper lobe, adjacent to which is a band of peripheral airspace consolidation and interstitial ground-glass densities and thickening of the interlobular pulmonary septa in the inferior lingula and in the lateral left lower lobe, seen on images 33 through 86 of series 402. This might represent a parapneumonic pleural effusion/early empyema versus COVID-19 peripheral pneumonitis versus an underlying neoplasm of the left upper lobe with associated lymphangitis carcinomatosa less likely. 5. The bony structures of the chest are normal for age. 6. These masses have benign features with well-defined la and internal homogeneous low attenuation density of less than 20 Hounsfield units and, in the absence of any history of prior cancer in this patient, are likely small simple cysts or hemangiomas. No further follow-up is recommended. ASSESSMENT: 66-year-old female with a history of COPD not oxygen or steroid-dependent, alcohol abuse, alcohol withdrawal, alcohol withdrawal seizures, gout, tobacco abuse, marijuana abuse, abnormal EKG with right axis deviation admitted for Community acquired PNA, empyema, sepsis, acute COPD exacerbation. PLAN: Left lung empyema, Enterobacter aerogenes and Pasteurella community acquired PNA with sepsis -WBC increased further today, slightly lower O2 saturation on RA, incr SOB at rest sometimes and definetly with activity -Micro with sputum cx above, + enterobacter aerogenes and pasteurella, has been on IV ceftriaxone -S/p thoracentesis, pleural fluid contained many poly's, WBC -C/w IV ceftriaxone, d/narinder doxycycline 06/23/21 -F/u repeat CT today to r/o increasing empyema, r/o PE. -ID consulted to also see. CT surgery not available today; however, consider discussing with pulmonary if worsened. -Oxygen to keep saturations at 88-92% -CT surgery had previously signed off due to much improved CT scan and removal of pigtail catheter 06/23/21. HFpEF with mild exacerbation-improved -BNP elevated >1000 -Echo above -C/w lasix, CCB, 2 gm sodium diet, I&O HTN -Improved today -C/w lasix, CCB Tick bite, site not infected -tick studies pending Active tobacco abuse -Tobacco cessation counseling has been provided -Nicotine patch started. She would like to continue at discharge. Alcohol abuse with history of alcohol withdrawal, seizures -No s/s of withdrawl -CIWA protocol with Ativan PRN, multivitamin ,thiamine, folate -Alcohol withdrawal precautions/seizure precautions Pulmonary cachexia BMI of 17.5 with protein calorie malnutrition -Biology Specialist has consulted. Benign liver lesions most likely hemangiomas -Outpatient follow-up Abnormal EKG with right axis deviation -Secondary to chronic obstructive pulmonary disease Abnormal TSH -TSH wnl, T3 only mildly incr -Will hold off on treatment as this may be transient Elevated BNP -Most likely due to pulmonary hypertension from longstanding COPD -Does not appear to be volume overloaded clinically -Echo shows no diastolic dysfunction DVT prophylaxis: Lovenox RESOLVED: Acute kidney injury Acute COPD exacerbation DISPOSITION: PT: cleared for home when medically improved. F/u CT today, ID evaluation. If needed, discuss with pulmonary. VS, I&O, 24H, Fishbone Vital Signs/I&O Vital Signs Date Time Temp Pulse Resp B/P (MAP) Pulse Ox O2 Delivery O2 Flow Rate FiO2 06/25/21 12:00 97.7 107 18 126/96 (106) 90 Room Air 06/22/21 20:00 2.0 I&O- Last 24 Hours up to 6 AM 06/25/21 06:00 Intake Total 1370 ml Output Total 1000 ml Balance 370 ml Laboratory Data 24H LABS Laboratory Tests 2 06/25/21 03:43: Immature Granulocyte % (Auto) 4.2H, Neutrophils (%) (Auto) 77.8H, Lymphocytes (% ) (Auto) 9.1L, Monocytes (%) (Auto) 7.6, Eosinophils (%) (Auto) 0.5, Basophils (%) (Auto) 0.8, Neutrophils # (Auto) 13.4H, Lymphocytes # (Auto) 1.6, Monocytes # (Auto) 1.3H, Eosinophils # (Auto) 0.1, Basophils # (Auto) 0.1, Nucleated Red Blood Cells % (auto) 0.0, Anion Gap 8, Glomerular Filtration Rate 58.2, Calcium Level 8.4L, Magnesium Level 1.6L 06/25/21 10:23: C-Reactive Protein, Quantitative 11.40H, Procalcitonin 0.50 CBC/BMP Laboratory Tests 06/25/21 03:43 Microbiology Microbiology 06/21/21 Acid Fast Stain, Received Pending 06/21/21 Mycobacterial Culture, Received Pending 06/21/21 Fungal Smear, Received Pending 06/21/21 Fungal Culture, Received Pending 06/21/21 Gram Stain - Final, Complete 06/21/21 Anaerobic Culture - Final, Complete 06/21/21 Body Fluid Culture - Final, Complete 06/20/21 Gram Stain - Final, Complete 06/20/21 Sputum Culture - Final, Complete Enterobacter Aerogenes Pasteurella Multocida 06/20/21 Respiratory Virus Panel (PCR) (MARK) - Final, Complete 06/20/21 Blood Culture - Final, Complete NO GROWTH AFTER 5 DAYS 06/20/21 Blood Culture - Final, Complete NO GROWTH AFTER 5 DAYS Jessica Humphrey MD Jun 25, 2021 13:32
[2021-06-25] MEDS ORDERED: FLUBLOK(EGG FREE)(QUAD)INFLUENZA VACC 0.5ML SYRINGE 18YRS & OLDER IM ONE (15:00)
[2021-06-25] MEDS ORDERED: BOOSTRIX/ADACEL VACCINE (DIPHTH/PERTUSS/ACELL/TETANUS) 0.5ML SYR IM ONE (16:00)
[2021-06-25] MEDS: cefTRIAXone SOD 1 GM in D5W MINI-BAG PLUS 50 ML IV SCH (16:33)
--- NOTE | 2021-06-25 20:43 | CR.PDOC ---
General Date of Consultation: Jun 25, 2021 Referring Provider: Jessica Humphrey MD Attending Physician: Attila Cruz MD Consultation REASON FOR INFECTIOUS DISEASE CONSULTATION/CHIEF COMPLAINT: Leukocytosis, empyema HISTORY OF PRESENT ILLNESS: Ms. Live is a 66-year-old female with a history of unmanaged COPD, tobacco use disorder, and alcohol use disorder who was admitted for sepsis 2/2 left lower lobe CAP and empyema. She had sharp, left-sided chest pain that worsened with inspiration over the weekend. CXR showed left lower lobe and lateral upper lobe nodularity. CTA chest showed fluid collection in the mid hemithorax. She was empirically treated with IV Ceftriaxone and Doxycycline. Thoracentesis and US-guided pigtail catheter drainage of the fluid was performed. Fluid analysis s howed pH 7.003, glucose 32, LDH 878, WBC 7232 with 96% neutrophils. Fluid culture did not show any organisms, but AFB and fungal cultures are pending. Sputum culture came back positive for Enterobacter aerogenes and Pasteurella multocida. The patient's leukocytosis had appeared to downtrend, but increased in the past 2 days. Today, the patient has no acute complaints. She is afebrile. She had a p roductive cough with yellow sputum that has improved and the sputum is now white. She has chronic SOB on exertion 2/2 COPD. Denies fever, chills and chest pain. Of note, a tick was removed from the patient on Monday, 06/22. It was found by nursing staff on the patient's right lower back and denies seeing any rash on her body. She was given 2 doses of Doxycycline 100mg PO. 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 PAST SURGICAL HISTORY: Surgical debridement 2/2 left calcaneal osteomyelitis FAMILY HISTORY: Father: ; h/o PNA, COPD, asthma, tobacco use disorder Mother: ; h/o asthma Siblings: 3 sisters + 1 brother; 1 sister has asthma, COPD, and h/o PNA SOCIAL HISTORY: Marital status and/or living arrangements: Living with boyfriend near [place] Children: None 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 HEENT: Denies headaches, dizziness. CARDIOVASCULAR: Denies chest pain, palpitations. RESPIRATORY: Dyspnea on exertion, chronic cough with white sputum. GENITOURINARY: Denies pyuria, dysuria. MUSCULOSKELETAL: Denies myalgia, arthralgia. GASTROINTESTINAL: Denies abdominal pain, N/V/D. SKIN: Lesion on her lower lip. Denies rashes or other body lesions. HEMATOLOGIC/LYMPHATIC: Denies lymphadenopathy. PHYSICAL EXAMINATION: VITAL SIGNS: Please see below. GENERAL APPEARANCE: Afebrile, thin but broad-chested female appearing older than stated age in no acute distress. HEENT: NC. AT. Herpetic appearing lesion on her right lower lip. Mucus membranes moist. Prominent taste buds on the back of the tongue. Mallampati Class I. RESPIRATORY: Diminished breath sounds, mild inspiratory wheezing heard on auscultation with use of accessory muscles. CARDIOVASCULAR: Regular rate and rhythm. Normal S1, S2. No murmurs, rubs, or gallops appreciated. ABDOMEN: Soft, nontender abdomen. Normal bowel sounds. EXTREMITIES: Thin, cachetic-appearing upper and lower extremities. 2+ radial and dorsalis pedis pulses. Calves nontender to palpation. SKIN: Red discoloration at the knees and hands. No large rashes or lesions appreciated. NEUROLOGICAL: No focal deficits appreciated. LABORATORY DATA: WBC 17.3, RBC 3.24, Hgb 12.9, Hct 37.3, Plt count 509 Na 143, K 4.1, Cl 101, CO2 34, BUN 35, Cr 1.01, Ca 8.4, Mg 1.6 CRP 11.40 MICROBIOLOGY: 06/20/21 Blood cultures X2 - no growth after 5 days 06/20/21 Sputum culture - Enterobacter aerogenes, Pasteurella multocida 06/21/21 Pleural fluid culture, gram stain, anaerobic culture - negative 06/21/21 Pleural fluid AFB and fungal smear and culture - pending IMAGIN06/25/21 CTA Chest: "1. Interval removal of the left anterolateral pigtail pleural drain catheter with trace extrapleural air and small amount of the fluid in the subpleural space. There is pleural reaction and increased adjacent atelectasis or infiltrate in the left upper and lower lobes and an increase in the small left pleural effusion. 2. No CT evidence of pulmonary thromboembolism. 3. No aortic aneurysm or dissection. No other significant change." 06/25/21 CXR: "The cardiomediastinal silhouette is unchanged. Patchy left lower lobe opacities and mild patchy left upper lobe opacities status quo. Chronic left CP angle blunting status quo. Mild chronic right basilar changes status quo." IMPRESSION: #CAP with empyema / Pasteurella multocida and Enterobacter aerogenes infection -Most pasteurella infections are due to animals bites or licks and mostly cause soft tissue/cellulitic infections. However, with the patient's underlying COPD, she was at higher risk of respiratory infection manifesting as pneumonia, empyema, tracheobronchitis, etc. Enterobacter aerogenes may be a colonization as it usually does not cause pathology in immunocompetent patients. Continue on IV Ceftriaxone to cover both organisms. Will consider switching to PO Cefdinir when she is ready for discharge. #Leukocytosis -The patient's leukocytosis has been increasing the past 2 days, which may be due to prednisone 60mg for her COPD. Recommend continued taper of steroids. Continue IV antibiotics and monitor for WBC to downtrend. #Tick bite -Patient did not present with a rash. Tick was taken off on Monday, 06/22, after it was incidentally found by nursing staff. She was given 2 doses of doxycycline within 72 hours of tick removal for prophylactic lyme treatment. Lyme disease screen ordered, but recommend patient to observe for any rashes or systemic s ymptoms within the next 30 days. PLAN: -Continue IV Ceftriaxone 1gm. Will consider switching to PO Cefdinir when she is ready for discharge. -Recommend continued prednisone taper. -Recommend flu shot and pneumovax. -Recommend primary care establishment for patient. -Pending pleural fluid cultures and lyme screen. Vital Signs/I&O Vital Signs Date Time Temp Pulse Resp B/P (MAP) Pulse Ox O2 Delivery O2 Flow Rate FiO2 06/25/21 17:38 117 137/97 06/25/21 16:00 97.3 18 95 Room Air 06/22/21 20:00 2.0 I&O- Last 24 Hours up to 6 AM 06/25/21 06:00 Intake Total 1370 ml Output Total 1000 ml Balance 370 ml Laboratory Data Labs 24H Laboratory Tests 2 06/25/21 03:43: Immature Granulocyte % (Auto) 4.2H, Neutrophils (%) (Auto) 77.8H, Lymphocytes (%) (Auto) 9.1L, Monocytes (%) (Auto) 7.6, Eosinophils (%) (Auto) 0.5, Basophils (%) (Auto) 0.8, Neutrophils # (Auto) 13.4H, Lymphocytes # (Auto) 1.6, Monocytes # (Auto) 1.3H, Eosinophils # (Auto) 0.1, Basophils # (Auto) 0.1, Nucleated Red Blood Cells % (auto) 0.0, Anion Gap 8, Glomerular Filtration Rate 58.2, Calcium Level 8.4L, Magnesium Level 1.6L 06/25/21 10:23: C-Reactive Protein, Quantitative 11.40H, Procalcitonin 0.50 CBC/BMP Laboratory Tests 06/25/21 03:43 Microbiology Microbiology 06/21/21 Acid Fast Stain, Received Pending 06/21/21 Mycobacterial Culture, Received Pending 06/21/21 Fungal Smear, Received Pending 06/21/21 Fungal Culture, Received Pending 06/21/21 Gram Stain - Final, Complete 06/21/21 Anaerobic Culture - Final, Complete 06/21/21 Body Fluid Culture - Final, Complete 06/20/21 Gram Stain - Final, Complete 06/20/21 Sputum Culture - Final, Complete Enterobacter Aerogenes Pasteurella Multocida 06/20/21 Respiratory Virus Panel (PCR) ([facility]) - Final, Complete 06/20/21 Blood Culture - Final, Complete NO GROWTH AFTER 5 DAYS 06/20/21 Blood Culture - Final, Complete NO GROWTH AFTER 5 DAYS Allergies Coded Allergies: No Known Allergies (Unverified , 06/20/21) Home Medications No Active Prescriptions or Reported Meds GME ATTESTATION GME ATTESTATION My faculty preceptor for this patient encounter was physically present during the encounter and was fully available. All aspects of the patient interview, examination, medical decision making process, and medical care plan development were reviewed and approved by the faculty preceptor. The faculty preceptor is aware and concurs with the plan as stated in the body of this note and will attest to such by his/her cosignature. JEANNIE NORMAN OMS-3 Jun 25, 2021 20:37
[2021-06-26] VITALS (7 sets, daily range): BP systolic 119–154; BP diastolic 65–89
[2021-06-26] MEDS: METOPROLOL TART 25 MG TABLET PO SCH ×5 (00:24→18:22)
[2021-06-26] MEDS: LEVALBUTEROL 1.25 MG/0.5 ML CONCENTRATE NEB INH SCH ×5 (03:44→19:32)
[2021-06-26 05:30] LABS: BASO # 0.1 10^3/uL (0.0-0.2); BASO % 0.7 % (0.0-1.0); EOS # 0.2 10^3/uL (0.0-0.5); EOS % 0.8 % (0.0-3.0); HEMATOCRIT 37.3 % (36.0-47.0); HEMOGLOBIN 12.4 g/dl (12.0-15.5); LYMPH # 1.8 10^3/uL (1.5-5.0); LYMPH % 9.7 % (24.0-44.0); MEAN CORPUSCULAR HEMOGLOBIN 38.5 pg (27.0-33.0); MEAN CORPUSCULAR HGB CONC 33.2 g/dl (32.0-36.5); MONO # 1.4 10^3/uL (0.0-0.8); MONO % 7.5 % (2.0-8.0); NEUTROPHILS # 14.6 10^3/uL (1.5-8.5); NEUTROPHILS % 77.1 % (36.0-66.0); PLATELET COUNT, AUTOMATED 513 10^3/uL (150-450); RED BLOOD COUNT 3.22 10^6/uL (4.00-5.40)
[2021-06-26 05:41] LABS: MEAN CORPUSCULAR VOLUME 115.8 fl (80.0-96.0)
[2021-06-26 05:49] LABS: BLOOD UREA NITROGEN 28 MG/DL (7-18); CALCIUM LEVEL 8.5 MG/DL (8.8-10.2); CARBON DIOXIDE LEVEL 36 MEQ/L (21-32); CHLORIDE LEVEL 100 MEQ/L (98-107); CREATININE FOR GFR 0.89 MG/DL (0.55-1.30); GLOMERULAR FILTRATION RATE > 60.0 (>45); GLUCOSE, FASTING 87 MG/DL (70-100); MAGNESIUM LEVEL 1.9 MG/DL (1.8-2.4); POTASSIUM SERUM 4.6 MEQ/L (3.5-5.1); SODIUM LEVEL 139 MEQ/L (136-145)
[2021-06-26] MEDS ORDERED: predniSONE 20 MG TAB PO SCH (09:00)
[2021-06-26] MEDS: NICOTINE 21MG/24HR 1 EA TRANSDERMAL TD SCH (09:26)
[2021-06-26] MEDS: ENOXAPARIN 40MG/0.4ML SYRINGE (J1650 PER 10MG) SC SCH (09:26)
[2021-06-26] MEDS: MAGNESIUM OXIDE 400MG TAB (MAG-OX) PO SCH ×2 (09:27→21:25)
[2021-06-26] MEDS: MULTIVITAMINS/MINERALS THERAP 1 TAB PO SCH (09:27)
[2021-06-26] MEDS: FOLIC ACID 1 MG TAB PO SCH (09:27)
[2021-06-26] MEDS: THIAMINE 100 MG TAB PO SCH (09:27)
[2021-06-26] MEDS: amLODIPine 5 MG TAB PO SCH (09:27)
[2021-06-26] MEDS: FUROSEMIDE 40MG/4ML VIAL (J1940) IV SCH (09:27)
[2021-06-26] MEDS: BACITRACIN OINTMENT 30GM TUBE TOP SCH (09:28)
[2021-06-26] MEDS: cefTRIAXone SOD 1 GM in D5W MINI-BAG PLUS 50 ML IV SCH (15:59)
--- NOTE | 2021-06-26 16:21 | IPNPDOC ---
Date Seen The patient was seen on 06/26/21. Progress Note SUBJECTIVE: WBC incr further despite decreasing steroids. Stopping all together today. She denies fevers, chest pain, nausea, vomiting, increased shortness of breath. OBJECTIVE: PHYSICAL EXAMINATION: VITAL SIGNS: See below GENERAL APPEARANCE: No acute distress, standing at the bedside. Awake alert and oriented 3 HEENT: No JVD no thyromegaly bitemporal wasting no cervical lymphadenopathy or stridor dry mucous membranes,Poor dentition CARDIOVASCULAR: S1-S2 sinus rhythm l, no murmurs noted LUNGS: improving left lower and upper lobe crackles/faint rhonchi, prior left side pigtail catheter site appears well healing ABDOMEN: Positive bowel sounds soft nontender nondistended no rebound or guarding INTEG: Right flank area where tick was found, further decreased erythema but not warm to touch, nontender EXTREMITIES: thin, No pitting edema. positive clubbing NEURO: Cranial nerves II12 intact, no focal deficits LABORATORY DATA: See below. MICRO: Sputum Cx: ENTEROBACTER AEROGENES PASTEURELLA MULTOCIDA Anaerobic pleural fluid GS, Cx: NG Aerobic pleural fluid GS, Cx: NG Resp panel: neg Blood cultures x 2 sets: NG to date MRSA neg IMAGING: CTA chest 06/25/21: 1. Interval removal of the left anterolateral pigtail pleural drain catheter with trace extrapleural air and small amount of the fluid in the subpleural space. There is pleural reaction and increased adjacent atelectasis or infiltrate in the left upper and lower lobes and an increase in the small left pleural effusion. 2. No CT evidence of pulmonary thromboembolism. 3. No aortic aneurysm or dissection. No other significant change. Echocardiogram: 1. Normal global left ventricular systolic function. There are some features of grade 1 left ventricular diastolic dysfunction manifested by abnormal relaxation. 2. Aortic valve sclerosis without stenosis or aortic regurgitation. 3. Mitral annulus calcification with trace mitral regurgitation. 4. Mild tricuspid regurgitation with mild pulmonary hypertension. 5. Trace pulmonic regurgitation was also noted. 6. Trace pericardial effusion, no evidence of cardiac tamponade. CT chest 06/23/21: 1. Left anterolateral pigtail drain has nearly completely evacuated the empyema in the left upper lobe with only trace fluid and extrapleural air. Adjacent curvilinear atelectatic change in the left upper lobe noted. Infiltrates in the left lower lobe are much improved and there is a small left pleural effusion with minimal increase since 06/20/2021. 2. Advanced bullous emphysematous changes with COPD, pulmonary artery hypertension and some underlying fibrosis, stable. 3. The anterolateral pericardial thickening or fluid on the left side adjacent to the empyema has decreased. Cardiomediastinal silhouette and contents otherwise unch anged. 4. Bony thorax and upper abdominal contents unchanged. CT CHEST: 1. No CT evidence of acute pulmonary embolism. 2. No CT evidence of acute thoracic aortic dissection, thoracic aneurysm or acute intramural thoracic aortic hematoma. 3. The heart size is normal. A small anterior pericardial effusion is present. Normal size pulmonary vasculature. No significant coronary artery calcification is present. 4. Mild pulmonary hyperinflation is seen consistent with underlying COPD. In addition, a moderate-sized questionable loculated pleural effusion is seen anterior to the inferior lingula and medial left upper lobe, adjacent to which is a band of peripheral airspace consolidation and interstitial ground-glass densities and thickening of the interlobular pulmonary septa in the inferior lingula and in the lateral left lower lobe, seen on images 33 through 86 of series 402. This might represent a parapneumonic pleural effusion/early empyema versus COVID-19 peripheral pneumonitis versus an underlying neoplasm of the left upper lobe with associated lymphangitis carcinomatosa less likely. 5. The bony structures of the chest are normal for age. 6. These masses have benign features with well-defined la and internal homogeneous low attenuation density of less than 20 Hounsfield units and, in the absence of any history of prior cancer in this patient, are likely small simple cysts or hemangiomas. No further follow-up is recommended. ASSESSMENT: 66-year-old female with a history of COPD not oxygen or steroid-dependent, alcohol abuse, alcohol withdrawal, alcohol withdrawal seizures, gout, tobacco abuse, marijuana abuse, abnormal EKG with right axis deviation admitted for Community acquired PNA, empyema, sepsis, acute COPD exacerbation. PLAN: Left lung empyema, Enterobacter aerogenes and Pasteurella community acquired PNA with sepsis -WBC increased further today,O2 improved, incr SOB at rest sometimes and definetly with activity -Micro with sputum cx above, + enterobacter aerogenes and pasteurella, has been on IV ceftriaxone -CRP elevated -S/p thoracentesis, pleural fluid contained many poly's, WBC -C/w IV ceftriaxone, d/narinder doxycycline 06/23/21 -Repeat CT ruled out PE, not worsened . Reviewed by pulmonary and infectious disease -Oxygen to keep saturations at 88-92% -CT surgery had previously signed off due to much improved CT scan and removal of pigtail catheter 06/23/21. -ID suggested transitioning to PO when WBC starts to trend down Leukocytosis 2/2 to infection vs. steroids -NO worsening s/s of infection -See above -Stopped steroids- which were being taperd down for COPD exacerbation -F/u daily CBC HFpEF with mild exacerbation-improved -BNP elevated >1000 -Echo above -Stopped lasix -C/w CCB, 2 gm sodium diet, I&O HTN -Improved today -Stopped lasix, c/w CCB., IF BP increases, can add back lasix as PO Tick bite, site not infected -lyme pending Active tobacco abuse -Tobacco cessation counseling has been provided -Nicotine patch. She would like to continue at discharge. Alcohol abuse with history of alcohol withdrawal, seizures -No s/s of withdrawl -CIWA protocol with Ativan PRN, multivitamin ,thiamine, folate -Alcohol withdrawal precautions/seizure precautions Pulmonary cachexia BMI of 17.5 with protein calorie malnutrition -Coroner Forensic Technician has consulted. Benign liver lesions most likely hemangiomas -Outpatient follow-up Abnormal EKG with right axis deviation -Secondary to chronic obstructive pulmonary disease Abnormal TSH -TSH wnl, T3 only mildly incr -Will hold off on treatment as this may be transient Elevated BNP -Most likely due to pulmonary hypertension from longstanding COPD -Does not appear to be volume overloaded clinically -Echo shows no diastolic dysfunction DVT prophylaxis: Lovenox RESOLVED: Acute kidney injury Acute COPD exacerbation DISPOSITION: PT: cleared for home when medically improved. Home when medically cleared. VS, I&O, 24H, Fishbone Vital Signs/I&O Vital Signs Date Time Temp Pulse Resp B/P (MAP) Pulse Ox O2 Delivery O2 Flow Rate FiO2 06/26/21 12:00 98.5 61 18 126/81 (96) 95 Room Air 06/22/21 20:00 2.0 I&O- Last 24 Hours up to 6 AM 06/26/21 05:59 Intake Total 930 ml Output Total 800 ml Balance 130 ml Laboratory Data 24H LABS Laboratory Tests 2 06/26/21 04:23: Immature Granulocyte % (Auto) 4.2H, Neutrophils (%) (Auto) 77.1H, Lymphocytes (%) (Auto) 9.7L, Monocytes (%) (Auto) 7.5, Eosinophils (%) (Auto) 0.8, Basophils (%) (Auto) 0.7, Neutrophils # (Auto) 14.6H, Lymphocytes # (Auto) 1.8, Monocytes # (Auto) 1.4H, Eosinophils # (Auto) 0.2, Basophils # (Auto) 0.1, Nucleated Red Blood Cells % (auto) 0.0, Anion Gap 3L, Glomerular Filtration Rate > 60.0, Calcium Level 8.5L, Magnesium Level 1.9 CBC/BMP Laboratory Tests 06/26/21 04:23 Microbiology Microbiology 06/21/21 Acid Fast Stain, Received Pending 06/21/21 Mycobacterial Culture, Received Pending 06/21/21 Fungal Smear, Received Pending 06/21/21 Fungal Culture, Received Pending 06/21/21 Gram Stain - Final, Complete 06/21/21 Anaerobic Culture - Final, Complete 06/21/21 Body Fluid Culture - Final, Complete 06/20/21 Gram Stain - Final, Complete 06/20/21 Sputum Culture - Final, Complete Enterobacter Aerogenes Pasteurella Multocida 06/20/21 Respiratory Virus Panel (PCR) (MARK) - Final, Complete 06/20/21 Blood Culture - Final, Complete NO GROWTH AFTER 5 DAYS 06/20/21 Blood Culture - Final, Complete NO GROWTH AFTER 5 DAYS Jessica Humphrey MD Jun 26, 2021 16:21
[2021-06-26 19:07] LABS: Lyme Disease IgG/IgM Antibodie <0.91 ISR (0.00-0.90); Lyme Disease IgM Ab Quantitati <0.80 index (0.00-0.79)
[2021-06-27] VITALS: BP 102/60
[2021-06-27] MEDS: LEVALBUTEROL 1.25 MG/0.5 ML CONCENTRATE NEB INH SCH ×4 (04:07→11:16)
[2021-06-27 05:59] VITALS: BP 133/88
[2021-06-27] MEDS: METOPROLOL TART 25 MG TABLET PO SCH ×2 (06:01)
[2021-06-27 06:54] LABS: BASO # 0.1 10^3/uL (0.0-0.2); BASO % 0.8 % (0.0-1.0); EOS # 0.2 10^3/uL (0.0-0.5); HEMATOCRIT 39.2 % (36.0-47.0); HEMOGLOBIN 12.9 g/dl (12.0-15.5); LYMPH # 1.7 10^3/uL (1.5-5.0); LYMPH % 9.9 % (24.0-44.0); MEAN CORPUSCULAR HEMOGLOBIN 38.4 pg (27.0-33.0); MEAN CORPUSCULAR HGB CONC 32.9 g/dl (32.0-36.5); MONO # 1.3 10^3/uL (0.0-0.8); MONO % 7.8 % (2.0-8.0); NEUTROPHILS # 12.7 10^3/uL (1.5-8.5); NEUTROPHILS % 76.1 % (36.0-66.0); PLATELET COUNT, AUTOMATED 548 10^3/uL (150-450); RED BLOOD COUNT 3.36 10^6/uL (4.00-5.40); WHITE BLOOD COUNT 16.7 10^3/uL (4.0-10.0)
[2021-06-27 06:56] LABS: MEAN CORPUSCULAR VOLUME 116.7 fl (80.0-96.0)
[2021-06-27 07:26] LABS: BLOOD UREA NITROGEN 28 MG/DL (7-18); CALCIUM LEVEL 8.6 MG/DL (8.8-10.2); CARBON DIOXIDE LEVEL 32 MEQ/L (21-32); CHLORIDE LEVEL 97 MEQ/L (98-107); CREATININE FOR GFR 0.94 MG/DL (0.55-1.30); GLOMERULAR FILTRATION RATE > 60.0 (>45); GLUCOSE, FASTING 99 MG/DL (70-100); POTASSIUM SERUM 4.9 MEQ/L (3.5-5.1); SODIUM LEVEL 138 MEQ/L (136-145)
[2021-06-27] MEDS ORDERED: METO1TAB87 PO (07:52)
[2021-06-27] MEDS ORDERED: CEFD300CAP PO (07:52)
[2021-06-27] MEDS ORDERED: NICO21PAT TD (07:52)
[2021-06-27] MEDS ORDERED: VITMTA PO (07:52)
[2021-06-27] MEDS ORDERED: PROB1CAP10 PO (07:52)
[2021-06-27] MEDS ORDERED: MAGN400T2 PO (07:52)
[2021-06-27 08:14] LABS: PLATELET ESTIMATE INCREASED (NORMAL)
[2021-06-27 08:15] LABS: HYPOCHROMASIA 1+; STOMATOCYTES 1+
[2021-06-27 08:30] VITALS: BP_SYST 118; BP_SYST 133; BP_DIAS 81; BP_DIAS 88
[2021-06-27] MEDS: amLODIPine 5 MG TAB PO SCH (08:30)
[2021-06-27] MEDS: ENOXAPARIN 40MG/0.4ML SYRINGE (J1650 PER 10MG) SC SCH (08:30)
[2021-06-27] MEDS: THIAMINE 100 MG TAB PO SCH (08:30)
[2021-06-27] MEDS: MULTIVITAMINS/MINERALS THERAP 1 TAB PO SCH (08:30)
[2021-06-27] MEDS: BACITRACIN OINTMENT 30GM TUBE TOP SCH (08:31)
[2021-06-27] MEDS: FOLIC ACID 1 MG TAB PO SCH (08:31)
[2021-06-27] MEDS: NICOTINE 21MG/24HR 1 EA TRANSDERMAL TD SCH (08:31)
[2021-06-27] MEDS: MAGNESIUM OXIDE 400MG TAB (MAG-OX) PO SCH (08:32)
[2021-06-27] MEDS ORDERED: ACYC1TAB PO (09:27)
--- NOTE | 2021-06-27 18:33 | DS.PDOC ---
Discharge Summary General Date of Admission Jun 20, 2021 at 07:21 Date of Discharge 06/27/21 Attending Physician: Jessica Humphrey MD Discharge Summary PROCEDURES PERFORMED DURING STAY: Pigtail catheter placement by IR on 06/21/21 ADMITTING DIAGNOSES: Sepsis secondary to left upper lobe and lower lobe community-acquired pneumonia with effusion left upper lobe and lower lobe community-acquired pneumonia with effusion Acute COPD exacerbation Active tobacco abuse Alcohol abuse with history of alcohol withdrawal and seizures Recreational drug use Pulmonary cachexia BMI of 17.5 with protein calorie malnutrition Benign liver lesions most likely hemangiomas Abnormal EKG with right axis deviation Sinus tachycardia Abnormal TSH Mild hyponatremia Elevated BNP DISCHARGE DIAGNOSES: Left lung empyema, Enterobacter aerogenes and Pasteurella community acquired PNA with sepsis Leukocytosis 2/2 to steroids HFpEF with mild exacerbation Acute COPD exacerbation STONEY HTN Tick bite Active tobacco abuse Alcohol abuse with history of alcohol withdrawal, seizures Pulmonary cachexia BMI of 17.5 with protein calorie malnutrition Benign liver lesions most likely hemangiomas Abnormal EKG with right axis deviation 2/2 to COPD Abnormal TSH Elevated BNP HISTORY OF PRESENT ILLNESS: 66-year-old female with a history of COPD not oxygen or steroid-dependent, alcohol abuse, alcohol withdrawal, alcohol withdrawal seizures, gout, tobacco abuse, marijuana abuse, abnormal EKG with right axis deviation, presents emergency room with a few days history of worsening shortness of breath, initially with exertion, with difficulty walking from bed to the bathroom, but now complains of dyspnea at rest, without fever, chills, or cough productive of sputum. For the past 3 days she has had decrease in appetite, without nausea, vomiting, headache, changes in vision, chest pain, pressure, tightness. She admits to palpitations as without dizziness, lightheadedness, or syncopal episode. She denies any abdominal pain, hematemesis, coffee-ground emesis, bright red blood per rectum melena black tarry stools, dysuria, urgency, frequency, polyphagia, polydipsia, weight gain weight loss, changes in sleep habits, joint pains muscle aches, anxiety, depression, unusual masses or nodules, or skin rash. Patient did not have any bronchodilators at home, and no medications were taken. In the emergency room, patient was found to be tachycardic heart rate of 130 bpm sinus, tachypneic with respiratory rate of 34 breaths/min, and was found to have significant wheezing, with chest x-ray showing left lower lobe and left upper lobe infiltrates, EKG sinus tachycardia with right axis deviation, sepsis with white count of 17.6 . Hospitalist was asked to admit the patient for pneumonia, negative for coronavirus, and COPD exacerbation. HOSPITAL COURSE: During the patient's hospitalization the following issues were addressed: Left lung empyema, Enterobacter aerogenes and Pasteurella community acquired PNA with sepsis -WBC improved today, O2 sat wnl on RA, incr SOB at rest sometimes and definetly with activity -Micro with sputum cx above, + enterobacter aerogenes and pasteurella, has been on IV ceftriaxone -CRP elevated -S/p thoracentesis on 06/21/21, pleural fluid contained many poly's, WBC -C/w IV ceftriaxone, d/narinder doxycycline 06/23/21 -Repeat CT ruled out PE, not worsened . Reviewed by pulmonary and infectious disease -CT surgery had previously signed off due to much improved CT scan and removal of pigtail catheter 06/23/21. -ID had seen. suggested transitioning to cefdinir which is what she is discharged home on. Persistent leukocytosis not likely 2/2 to infection but steroids. Steroid induced leukocytosis -Improving. -Was on steroids with acute COPD exacerbation which is resolved -Stopped steroids 06/26/21 -No worsening s/s of infection HFpEF with mild exacerbation-improved -BNP elevated >1000 -Echo above -Stopped lasix -C/w CCB, 2 gm sodium diet HTN -Improved -Stopped lasix, c/w CCB. Tick bite, site not infected -lyme pending Active tobacco abuse -Tobacco cessation counseling has been provided -Nicotine patch sent in at discharge. Alcohol abuse with history of alcohol withdrawal, seizures -No s/s of withdrawl -C/w multivitamin, alcohol cessation Pulmonary cachexia BMI of 17.5 with protein calorie malnutrition -Drywall Hanger Framer was consulted. Benign liver lesions most likely hemangiomas -Outpatient follow-up Abnormal EKG with right axis deviation -Secondary to chronic obstructive pulmonary disease Abnormal TSH -TSH wnl, T3 only mildly incr -Will hold off on treatment as this may be transient -Recommend f/u with PCP as she may need thyroid us Elevated BNP -Most likely due to pulmonary hypertension from longstanding COPD -Does not appear to be volume overloaded clinically -Echo shows no diastolic dysfunction DISCHARGE MEDICATIONS: Please see below. ALLERGIES: Please see below. PHYSICAL EXAMINATION ON DISCHARGE: VITAL SIGNS: See below GENERAL APPEARANCE: No acute distress, standing at the bedside. Awake alert and oriented 3 HEENT: No JVD no thyromegaly bitemporal wasting no cervical lymphadenopathy or stridor dry mucous membranes, Poor dentition CARDIOVASCULAR: S1-S2 sinus rhythm l, no murmurs noted LUNGS: improving left lower and upper lobe crackles/faint rhonchi, prior left side pigtail catheter site appears well healing ABDOMEN: Positive bowel sounds soft nontender nondistended no rebound or guarding INTEG: Right flank area where tick was found, further decreased erythema but not warm to touch, nontender EXTREMITIES: thin, No pitting edema. positive clubbing NEURO: Cranial nerves II12 intact, no focal deficits LABORATORY DATA: Please see below. MICRO: Sputum Cx: ENTEROBACTER AEROGENES PASTEURELLA MULTOCIDA Anaerobic pleural fluid GS, Cx: NG Aerobic pleural fluid GS, Cx: NG Resp panel: neg Blood cultures x 2 sets: NG to date MRSA neg IMAGING: CTA chest 06/25/21: 1. Interval removal of the left anterolateral pigtail pleural drain catheter with trace extrapleural air and small amount of the fluid in the subpleural space. There is pleural reaction and increased adjacent atelectasis or infiltrate in the left upper and lower lobes and an increase in the small left pleural effusion. 2. No CT evidence of pulmonary thromboembolism. 3. No aortic aneurysm or dissection. No other significant change. Echocardiogram: 1. Normal global left ventricular systolic function. There are some features of grade 1 left ventricular diastolic dysfunction manifested by abnormal relaxation. 2. Aortic valve sclerosis without stenosis or aortic regurgitation. 3. Mitral annulus calcification with trace mitral regurgitation. 4. Mild tricuspid regurgitation with mild pulmonary hypertension. 5. Trace pulmonic regurgitation was also noted. 6. Trace pericardial effusion, no evidence of cardiac tamponade. CT chest 06/23/21: 1. Left anterolateral pigtail drain has nearly completely evacuated the empyema in the left upper lobe with only trace fluid and extrapleural air. Adjacent cu rvilinear atelectatic change in the left upper lobe noted. Infiltrates in the left lower lobe are much improved and there is a small left pleural effusion with minimal increase since 06/20/2021. 2. Advanced bullous emphysematous changes with COPD, pulmonary artery hypertension and some underlying fibrosis, stable. 3. The anterolateral pericardial thickening or fluid on the left side adjacent to the empyema has decreased. Cardiomediastinal silhouette and contents otherwise unchanged. 4. Bony thorax and upper abdominal contents unchanged. CT CHEST: 1. No CT evidence of acute pulmonary embolism. 2. No CT evidence of acute thoracic aortic dissection, thoracic aneurysm or acute intramural thoracic aortic hematoma. 3. The heart size is normal. A small anterior pericardial effusion is present. Normal size pulmonary vasculature. No significant coronary artery calcification is present. 4. Mild pulmonary hyperinflation is seen consistent with underlying COPD. In addition, a moderate-sized questionable loculated pleural effusion is seen anterior to the inferior lingula and medial left upper lobe, adjacent to which is a band of peripheral airspace consolidation and interstitial ground-glass densities and thickening of the interlobular pulmonary septa in the inferior lingula and in the lateral left lower lobe, seen on images 33 through 86 of series 402. This might represent a parapneumonic pleural effusion/early empyema versus COVID-19 peripheral pneumonitis versus an underlying neoplasm of the left upper lobe with associated lymphangitis carcinomatosa less likely. 5. The bony structures of the chest are normal for age. 6. These masses have benign features with well-defined la and internal homogeneous low attenuation density of less than 20 Hounsfield units and, in the absence of any history of prior cancer in this patient, are likely small simple cysts or hemangiomas. No further follow-up is recommended. PROGNOSIS: Good ACTIVITY:As tolerated DIET: 2 gm sodium DISPOSITION: 01 Home, Self-Care. DISCHARGE INSTRUCTIONS: 1. She currently does not have PCP to follow up with but says she plans on reaching out to Dr. Powers's office in [place], [place] after discharge. Recommend f/u in 1-2 weeks after discharge. 2. Will need repeat thyroid studies by PCP, as TSH was abnormal here. Also PCP should follow up on lyme testing done in hospital. 3. If you have increased SOB, fever, fatigue, cough or chest pain please be seen immediately by a medical professional. DISCHARGE CONDITION: Stable TIME SPENT ON DISCHARGE: 35 minutes. Vital Signs/I&Os Vital Signs Date Time Temp Pulse Resp B/P (MAP) Pulse Ox O2 Delivery O2 Flow Rate FiO2 06/27/21 08:30 96.4 103 20 118/81 (93) 94 Room Air 06/22/21 20:00 2.0 I&O- Last 24 Hours up to 6 AM 06/27/21 06:00 Intake Total 2540 ml Output Total 600 ml Balance 1940 ml Laboratory Data Labs 24H Laboratory Tests 2 06/27/21 05:41: Immature Granulocyte % (Auto) 4.4H, Neutrophils (%) (Auto) 76.1H, Lymphocytes (%) (Auto) 9.9L, Monocytes (%) (Auto) 7.8, Eosinophils (%) (Auto) 1.0, Basophils (%) (Auto) 0.8, Neutrophils # (Auto) 12.7H, Lymphocytes # (Auto) 1.7, Monocytes # (Auto) 1.3H, Eosinophils # (Auto) 0.2, Basophils # (Auto) 0.1, Nucleated Red Blood Cells % (auto) 0.0, Platelet Estimate INCREASED, Hypochromasia 1+, Macrocytosis 2+, Stomatocytes 1+, Anion Gap 9, Glomerular Filtration Rate > 60.0, Calcium Level 8.6L, Magnesium Level 2.0 CBC/BMP Laboratory Tests 06/27/21 05:41 Microbiology Microbiology 06/21/21 Acid Fast Stain, Received Pending 06/21/21 Mycobacterial Culture, Received Pending 06/21/21 Fungal Smear, Received Pending 06/21/21 Fungal Culture, Received Pending 06/21/21 Gram Stain - Final, Complete 06/21/21 Anaerobic Culture - Final, Complete 06/21/21 Body Fluid Culture - Final, Complete 06/20/21 Gram Stain - Final, Complete 06/20/21 Sputum Culture - Final, Complete Enterobacter Aerogenes Pasteurella Multocida 06/20/21 Respiratory Virus Panel (PCR) (MARK) - Final, Complete 06/20/21 Blood Culture - Final, Complete NO GROWTH AFTER 5 DAYS 06/20/21 Blood Culture - Final, Complete NO GROWTH AFTER 5 DAYS Discharge Medications Scheduled Acyclovir (Acyclovir) 400 Mg Tablet, 400 MG PO TID Cefdinir (Cefdinir) 300 Mg Capsule, 300 MG PO BID Lactobacillus Acidophilus (Probiotic Acidophilus) 1.5 Mg Capsule, 1 CAP PO BIDWM Magnesium Oxide (Magnesium Oxide) 400 Mg Tablet, 400 MG PO BID Metoprolol Tartrate (Metoprolol Tartrate) 25 Mg Tablet, 25 MG PO BID Multivitamins (Thera M Plus Tablet) 1 Each Tablet, 1 TAB PO DAILY Nicotine (Nicotine Patch) 21 Mg Patch.td24, 1 PATCH TD DAILY Allergies Coded Allergies: No Known Allergies (Unverified , 06/20/21) Jessica Humphrey MD Jun 27, 2021 18:33
== END 2021-06-27 11:40 | disposition home or self-care (01) | DRG 871 ==
LOC: M ED 05:45 → M ED INP 07:21 → ENRESERV 06-21 06:57 → M PCU 06-21 07:35 → M MSPAV 06-21 21:43 → M PCU 06-22 11:21
PROVIDERS: ADMIT General Practice; ATTEND Internal Medicine
PROC: 0W9B3ZZ Drainage of Left Pleural Cavity, Percutaneous Approach (ICD-10-PCS; principal; 2021-06-21 16:00)
DX: A41.9 Sepsis, unspecified organism (principal); J86.9 Pyothorax without fistula; J15.6 Pneumonia due to other Gram-negative bacteria; I50.33 Acute on chronic diastolic (congestive) heart failure; J44.0 Chronic obstructive pulmonary disease with (acute) lower respiratory infection; J44.1 Chronic obstructive pulmonary disease with (acute) exacerbation; R64 Cachexia; E46 Unspecified protein-calorie malnutrition; E87.1 Hypo-osmolality and hyponatremia; N17.9 Acute kidney failure, unspecified; Z68.1 Body mass index [BMI] 19.9 or less, adult; I27.20 Pulmonary hypertension, unspecified; F17.210 Nicotine dependence, cigarettes, uncomplicated; F10.10 Alcohol abuse, uncomplicated; D18.09 Hemangioma of other sites; M10.9 Gout, unspecified; F12.10 Cannabis abuse, uncomplicated; Z79.899 Other long term (current) drug therapy

== ENCOUNTER → 2021-08-25 | Outpatient (REF) | payer MEDICARE, BC ==
[~2021-08-25] MED LIST: ACYC1TAB PO; CEFD300CAP PO; MAGN400T2 PO; METO1TAB87 PO; NICO21PAT TD; PROB1CAP10 PO; VITMTA PO
[2021-08-25 17:51] LABS: BASO % 0.4 % (0.0-1.0); HEMATOCRIT 42.3 % (36.0-47.0); HEMOGLOBIN 13.6 g/dl (12.0-15.5); LYMPH # 0.9 10^3/uL (1.5-5.0); MEAN CORPUSCULAR HEMOGLOBIN 35.3 pg (27.0-33.0); MEAN CORPUSCULAR HGB CONC 32.2 g/dl (32.0-36.5); MEAN CORPUSCULAR VOLUME 109.9 fl (80.0-96.0); MONO # 0.2 10^3/uL (0.0-0.8); MONO % 3.3 % (2.0-8.0); NEUTROPHILS # 6.1 10^3/uL (1.5-8.5); NEUTROPHILS % 83.2 % (36.0-66.0); PLATELET COUNT, AUTOMATED 401 10^3/uL (150-450); RED BLOOD COUNT 3.85 10^6/uL (4.00-5.40); WHITE BLOOD COUNT 7.3 10^3/uL (4.0-10.0)
[2021-08-25 18:01] LABS: ALBUMIN 3.9 GM/DL (3.2-5.2); BILIRUBIN,TOTAL 0.4 MG/DL (0.2-1.0); CALCIUM LEVEL 9.5 MG/DL (8.8-10.2); CHOLESTEROL RISK RATIO 1.711 (<5); CREATININE FOR GFR 1.01 MG/DL (0.55-1.30); FREE T4 1.04 NG/DL (0.76-1.46); GLOMERULAR FILTRATION RATE 58.2 (>45); POTASSIUM SERUM 4.7 MEQ/L (3.5-5.1); THYROID STIMULATING HORMONE 1.61 uIU/ML (0.358-3.740); TOTAL PROTEIN 7.3 GM/DL (6.4-8.2)
[2021-08-25 18:26] LABS: LDL CHOLESTEROL 103.6 MG/DL (<100)
== END ==
LOC: M SFHCADAM 15:07
PROVIDERS: ATTEND Physician Assistant
DX: J43.9 Emphysema, unspecified (principal); J86.9 Pyothorax without fistula; R79.89 Other specified abnormal findings of blood chemistry; F10.10 Alcohol abuse, uncomplicated; R00.0 Tachycardia, unspecified; E83.42 Hypomagnesemia

== ENCOUNTER → 2021-08-27 | Outpatient (REF) | payer MEDICARE, BC ==
[2021-08-27 12:55] LABS: FOLATE 2.4 NG/ML
== END ==
LOC: M SFHCADAM 09:05
PROVIDERS: ATTEND Physician Assistant
DX: D75.89 Other specified diseases of blood and blood-forming organs (principal); F10.10 Alcohol abuse, uncomplicated; Z12.11 Encounter for screening for malignant neoplasm of colon

== ENCOUNTER → 2021-08-27 | Outpatient (CLI) | payer MEDICARE, BC | LOC: M ADAMS 09:08 | PROVIDERS: ATTEND Physician Assistant | DX: R91.8 Other nonspecific abnormal finding of lung field (principal); J86.9 Pyothorax without fistula ==

== ENCOUNTER → 2021-09-16 | Outpatient (REF) | payer MEDICARE, BC ==
[2021-09-16 14:18] LABS: BLOOD UREA NITROGEN 13 MG/DL (7-18); CALCIUM LEVEL 9.2 MG/DL (8.8-10.2); CARBON DIOXIDE LEVEL 26 MEQ/L (21-32); CHLORIDE LEVEL 104 MEQ/L (98-107); CREATININE FOR GFR 0.93 MG/DL (0.55-1.30); GLOMERULAR FILTRATION RATE > 60.0 (>45); GLUCOSE, FASTING 87 MG/DL (70-100); SODIUM LEVEL 138 MEQ/L (136-145)
== END ==
LOC: M SFHCADAM 09:48
PROVIDERS: ATTEND Physician Assistant
DX: R91.1 Solitary pulmonary nodule (principal)

== ENCOUNTER → 2021-09-20 | Outpatient (CLI) | payer MEDICARE, BC, OTHER ==
[~2021-09-20] MED LIST changes: +ISOVUE-370 76% 100ML VIAL ONE
== END ==
LOC: M PLAIMG 11:06
PROVIDERS: ATTEND Physician Assistant
DX: R91.1 Solitary pulmonary nodule (principal); J43.9 Emphysema, unspecified; E27.8 Other specified disorders of adrenal gland
CPT/HCPCS: 71260; Q9967

== ENCOUNTER → 2021-10-18 | Outpatient (CLI) | payer MEDICARE, BC, OTHER ==
[~2021-10-18] MED LIST changes: -ISOVUE-370 76% 100ML VIAL ONE; +PROHANCE 279.3MG/ML 15ML VIAL As Ordered ONE
== END ==
LOC: M RAD 07:31
PROVIDERS: ATTEND Physician Assistant
DX: D35.02 Benign neoplasm of left adrenal gland (principal); I31.8 Other specified diseases of pericardium; K76.89 Other specified diseases of liver; N28.1 Cyst of kidney, acquired
CPT/HCPCS: 74183; 93306; A9576

== ENCOUNTER → 2021-11-16 | Outpatient (REF) | payer MEDICARE, BC ==
[~2021-11-16] MED LIST changes: -PROHANCE 279.3MG/ML 15ML VIAL As Ordered ONE
[2021-11-16 12:48] LABS: BASO % 0.3 % (0.0-1.0); EOS % 0.3 % (0.0-3.0); HEMATOCRIT 44.1 % (36.0-47.0); HEMOGLOBIN 14.4 g/dl (12.0-15.5); LYMPH # 1.3 10^3/uL (1.5-5.0); LYMPH % 10.5 % (24.0-44.0); MEAN CORPUSCULAR HEMOGLOBIN 34.7 pg (27.0-33.0); MEAN CORPUSCULAR HGB CONC 32.7 g/dl (32.0-36.5); MEAN CORPUSCULAR VOLUME 106.3 fl (80.0-96.0); MONO # 0.4 10^3/uL (0.0-0.8); MONO % 3.7 % (2.0-8.0); NEUTROPHILS # 10.1 10^3/uL (1.5-8.5); NEUTROPHILS % 84.7 % (36.0-66.0); PLATELET COUNT, AUTOMATED 311 10^3/uL (150-450); RED BLOOD COUNT 4.15 10^6/uL (4.00-5.40); WHITE BLOOD COUNT 11.9 10^3/uL (4.0-10.0)
[2021-11-16 13:16] LABS: ALBUMIN 4.2 GM/DL (3.2-5.2); BILIRUBIN,TOTAL 0.4 MG/DL (0.2-1.0); CALCIUM LEVEL 9.8 MG/DL (8.8-10.2); CREATININE FOR GFR 1.24 MG/DL (0.55-1.30); GLOMERULAR FILTRATION RATE 45.9 (>45); MAGNESIUM LEVEL 1.9 MG/DL (1.8-2.4); POTASSIUM SERUM 4.6 MEQ/L (3.5-5.1); TOTAL PROTEIN 7.7 GM/DL (6.4-8.2)
== END ==
LOC: M SFHCADAM 08:41
PROVIDERS: ATTEND Physician Assistant
DX: N17.9 Acute kidney failure, unspecified (principal); D35.02 Benign neoplasm of left adrenal gland

== ENCOUNTER 2022-06-23 23:07 | Inpatient (IN) | payer MEDICARE, BC, MEDICAID ==
[~2022-06-23] VITALS: Ht 165.1 cm; Wt 55.0 kg
[2022-06-23] MEDS ORDERED: methylPREDNISolone 125MG 2ML VIAL IV ONE (23:15)
[2022-06-23 23:30] LABS: BASO # 0.2 10^3/uL (0.0-0.2); BASO % 1.1 % (0.0-1.0); EOS % 0.3 % (0.0-3.0); HEMATOCRIT 42.6 % (36.0-47.0); HEMOGLOBIN 13.6 g/dl (12.0-15.5); LYMPH # 1.9 10^3/uL (1.5-5.0); LYMPH % 12.8 % (24.0-44.0); MEAN CORPUSCULAR HEMOGLOBIN 36.9 pg (27.0-33.0); MEAN CORPUSCULAR HGB CONC 31.9 g/dl (32.0-36.5); MONO # 0.6 10^3/uL (0.0-0.8); NEUTROPHILS # 11.8 10^3/uL (1.5-8.5); NEUTROPHILS % 77.5 % (36.0-66.0); PLATELET COUNT, AUTOMATED 401 10^3/uL (150-450); RED BLOOD COUNT 3.69 10^6/uL (4.00-5.40); WHITE BLOOD COUNT 15.2 10^3/uL (4.0-10.0)
[2022-06-23] MEDS: IPRATROPIUM 0.5MG/ALBUTEROL 2.5MG INH SOL UD 3ML (DUONEB) NEB SCH (23:36)
[2022-06-23 23:37] LABS: MEAN CORPUSCULAR VOLUME 115.4 fl (80.0-96.0)
[2022-06-24] VITALS (16 sets, daily range): BP systolic 100–172; BP diastolic 61–93
[2022-06-24] MEDS: IPRATROPIUM 0.5MG/ALBUTEROL 2.5MG INH SOL UD 3ML (DUONEB) NEB SCH ×6 (00:05→20:54)
[2022-06-24 00:06] LABS: CK-MB VALUE MASS 10.8 NG/ML (<3.6); MB/CK RELATIVE INDEX 5.93 (< OR =4)
[2022-06-24 00:06] LABS: BILIRUBIN,DIRECT 0.1 MG/DL (0.0-0.2); BILIRUBIN,TOTAL 0.3 MG/DL (0.2-1.0); CALCIUM LEVEL 8.7 MG/DL (8.8-10.2); CREATININE FOR GFR 1.6 MG/DL (0.55-1.30); ETHYL ALCOHOL (ETHANOL) 0.007 % (0.000-0.010); GLOMERULAR FILTRATION RATE 34.1 (>45); POTASSIUM SERUM 4.8 MEQ/L (3.5-5.1); TOTAL PROTEIN 7.6 GM/DL (6.4-8.2)
[2022-06-24 00:24] LABS: PLATELET ESTIMATE NORMAL (NORMAL)
[2022-06-24 01:10] LABS: CK-MB VALUE MASS 11.3 NG/ML (<3.6); MB/CK RELATIVE INDEX 5.89 (< OR =4)
[2022-06-24] MEDS ORDERED: NS 1,000 ML IV ONE (01:30)
[2022-06-24] MEDS ORDERED: cefTRIAXone SOD 2 GM in D5W MINI-BAG PLUS 50 ML IV ONE (02:00)
[2022-06-24] MEDS ORDERED: GLUCAGON INJ 1MG VIAL SC PRN (02:50)
[2022-06-24] MEDS ORDERED: GLUCOSE 4GM CHEW TABLET PO PRN (02:50)
[2022-06-24] MEDS ORDERED: NS 1,000 ML IV SCH (02:50)
[2022-06-24] MEDS ORDERED: DEXTROSE 50% 50 ML SYRINGE IV PRN (02:50)
[2022-06-24] MEDS ORDERED: ALBUTEROL SULFATE 2.5 MG/0.5 ML INH NEB SOLN NEB PRN (02:50)
[2022-06-24] MEDS ORDERED: LORazepam 2 MG TAB PO PRN (03:05)
[2022-06-24] MEDS ORDERED: THIAMINE 100 MG TAB PO SCH (04:00)
[2022-06-24] MEDS: DOXYCYCLINE HYCLATE 100MG TABLET PO SCH ×2 (04:17→21:03)
[2022-06-24] MEDS ORDERED: EQ S PO (05:28)
[2022-06-24] MEDS ORDERED: ALBU8.5H INH (05:28)
[2022-06-24] MEDS ORDERED: TREL1AER INH (05:28)
[2022-06-24] MEDS ORDERED: BISO5TAB14 PO (05:28)
[2022-06-24] MEDS ORDERED: AMLO1TAB24 PO (05:28)
[2022-06-24] MEDS ORDERED: IPRA0.00 INH (05:28)
[2022-06-24] MEDS ORDERED: COMBAER6 INH (05:28)
[2022-06-24] MEDS ORDERED: ASPI1TAB22 PO (05:28)
[2022-06-24] MEDS ORDERED: PRED5TA PO (05:28)
[2022-06-24] MEDS ORDERED: VITA500T37 PO (05:28)
[2022-06-24] MEDS ORDERED: HOME MED LIST COMPLETE! XX SCH (05:30)
[2022-06-24] MEDS: methylPREDNISolone 40MG 1ML VIAL IV SCH ×3 (05:34→17:58)
[2022-06-24] MEDS: HEPARIN SOD (PORCINE) 5000UNITS/ML 1ML VIAL/SYRINGE SC SCH ×3 (05:34→21:03)
[2022-06-24 05:48] LABS: ABG BASE EXCESS -7.2 (-2.0-2.0); ABG HCO3 20.6 MEQ/L (22.0-26.0); ABG PARTIAL PRESSURE CO2 50.7 mmHg (35.0-45.0); ABG STANDARD HCO3 18.7 MEQ/L (22.0-26.0); ABG TOTAL CO2 22.1 MEQ/L (23.0-31.0)
[2022-06-24] MEDS ORDERED: INSULIN LISPRO (NovoLOG) PER UNIT SC SCH (06:00)
[2022-06-24 06:05] LABS: ABG pH (ARTERIAL) 7.226 UNITS (7.350-7.450)
[2022-06-24 06:25] LABS: CALCIUM LEVEL 7.9 MG/DL (8.8-10.2); CREATININE FOR GFR 1.43 MG/DL (0.55-1.30); GLOMERULAR FILTRATION RATE 38.8 (>45); POTASSIUM SERUM 4.5 MEQ/L (3.5-5.1)
[2022-06-24] MEDS: MULTIVITAMINS/MINERALS THERAP 1 TAB PO SCH (08:13)
[2022-06-24] MEDS: FOLIC ACID 1MG TAB PO SCH (08:13)
[2022-06-24 09:21] LABS: HEMATOCRIT 39.2 % (36.0-47.0); HEMOGLOBIN 12.4 g/dl (12.0-15.5); MEAN CORPUSCULAR HEMOGLOBIN 36.4 pg (27.0-33.0); MEAN CORPUSCULAR HGB CONC 31.6 g/dl (32.0-36.5); PLATELET COUNT, AUTOMATED 329 10^3/uL (150-450); RED BLOOD COUNT 3.41 10^6/uL (4.00-5.40); WHITE BLOOD COUNT 18.4 10^3/uL (4.0-10.0)
[2022-06-24 09:52] LABS: ABG BASE EXCESS -7.3 (-2.0-2.0); ABG HCO3 19.2 MEQ/L (22.0-26.0); ABG O2 SATURATION 98.8 % (95.0-99.0); ABG PARTIAL PRESSURE CO2 42.4 mmHg (35.0-45.0); ABG PARTIAL PRESSURE O2 150.2 mmHg (75.0-100.0); ABG STANDARD HCO3 18.6 MEQ/L (22.0-26.0); ABG TOTAL CO2 20.5 MEQ/L (23.0-31.0); ABG pH (ARTERIAL) 7.274 UNITS (7.350-7.450)
[2022-06-25] VITALS (10 sets, daily range): BP systolic 136–183; BP diastolic 75–95
[2022-06-25] MEDS: methylPREDNISolone 40MG 1ML VIAL IV SCH ×5 (01:47→23:25)
[2022-06-25 05:05] LABS: HEMATOCRIT 35.7 % (36.0-47.0); HEMOGLOBIN 11.8 g/dl (12.0-15.5); MEAN CORPUSCULAR HEMOGLOBIN 37.5 pg (27.0-33.0); MEAN CORPUSCULAR HGB CONC 33.1 g/dl (32.0-36.5); MEAN CORPUSCULAR VOLUME 113.3 fl (80.0-96.0); PLATELET COUNT, AUTOMATED 289 10^3/uL (150-450); RED BLOOD COUNT 3.15 10^6/uL (4.00-5.40); WHITE BLOOD COUNT 19.3 10^3/uL (4.0-10.0)
[2022-06-25] MEDS: HEPARIN SOD (PORCINE) 5000UNITS/ML 1ML VIAL/SYRINGE SC SCH ×3 (05:22→21:14)
[2022-06-25 05:38] LABS: CREATININE FOR GFR 1.13 MG/DL (0.55-1.30)
[2022-06-25] MEDS: IPRATROPIUM 0.5MG/ALBUTEROL 2.5MG INH SOL UD 3ML (DUONEB) NEB SCH ×4 (08:18→19:58)
[2022-06-25] MEDS: MULTIVITAMINS/MINERALS THERAP 1 TAB PO SCH (09:12)
[2022-06-25] MEDS: FOLIC ACID 1MG TAB PO SCH (09:12)
[2022-06-25] MEDS: DOXYCYCLINE HYCLATE 100MG TABLET PO SCH ×2 (09:12→20:08)
[2022-06-25] MEDS: THIAMINE 100 MG TAB PO SCH (09:12)
[2022-06-25] MEDS: SYMBICORT 160/4.5MCG INHALER 6GM INH SCH ×2 (11:48→19:57)
[2022-06-26] VITALS: BP 140/75
[2022-06-26 04:00] VITALS: BP 156/73
[2022-06-26 05:02] LABS: HEMATOCRIT 34.2 % (36.0-47.0); HEMOGLOBIN 11.4 g/dl (12.0-15.5); MEAN CORPUSCULAR HEMOGLOBIN 37.6 pg (27.0-33.0); MEAN CORPUSCULAR HGB CONC 33.3 g/dl (32.0-36.5); MEAN CORPUSCULAR VOLUME 112.9 fl (80.0-96.0); PLATELET COUNT, AUTOMATED 296 10^3/uL (150-450); RED BLOOD COUNT 3.03 10^6/uL (4.00-5.40); WHITE BLOOD COUNT 20.7 10^3/uL (4.0-10.0)
[2022-06-26] MEDS: methylPREDNISolone 40MG 1ML VIAL IV SCH ×3 (05:23→21:31)
[2022-06-26] MEDS: HEPARIN SOD (PORCINE) 5000UNITS/ML 1ML VIAL/SYRINGE SC SCH ×3 (05:24→21:55)
[2022-06-26 05:40] LABS: CREATININE FOR GFR 1.17 MG/DL (0.55-1.30); POTASSIUM SERUM 4.1 MEQ/L (3.5-5.1)
[2022-06-26] MEDS: SYMBICORT 160/4.5MCG INHALER 6GM INH SCH ×2 (07:09→20:35)
[2022-06-26] MEDS: IPRATROPIUM 0.5MG/ALBUTEROL 2.5MG INH SOL UD 3ML (DUONEB) NEB SCH ×4 (07:09→20:35)
[2022-06-26 07:56] VITALS: BP 159/85
[2022-06-26] MEDS: MULTIVITAMINS/MINERALS THERAP 1 TAB PO SCH (08:37)
[2022-06-26] MEDS: amLODIPine 5 MG TAB PO SCH (08:38)
[2022-06-26] MEDS: FOLIC ACID 1MG TAB PO SCH (08:38)
[2022-06-26] MEDS: THIAMINE 100 MG TAB PO SCH (08:38)
[2022-06-26] MEDS: DOXYCYCLINE HYCLATE 100MG TABLET PO SCH ×2 (08:38→21:31)
[2022-06-26] MEDS ORDERED: PILL CUTTER 1 EACH XX PRN (08:50)
[2022-06-26 09:33] LABS: ABG BASE EXCESS -1.7 (-2.0-2.0); ABG HCO3 22.5 MEQ/L (22.0-26.0); ABG O2 SATURATION 93.7 % (95.0-99.0); ABG PARTIAL PRESSURE CO2 36.4 mmHg (35.0-45.0); ABG PARTIAL PRESSURE O2 68.6 mmHg (75.0-100.0); ABG TOTAL CO2 23.6 MEQ/L (23.0-31.0); ABG pH (ARTERIAL) 7.409 UNITS (7.350-7.450)
[2022-06-26 14:00] VITALS: BP 162/77
[2022-06-26 16:00] VITALS: BP 162/77
[2022-06-26] MEDS ORDERED: ACETAMINOPHEN TAB 650MG DOSE (2X325MG) PO PRN (17:35)
[2022-06-26 20:39] VITALS: BP 162/88
[2022-06-27 05:04] VITALS: BP 163/78
[2022-06-27 05:20] LABS: HEMATOCRIT 33.9 % (36.0-47.0); HEMOGLOBIN 11.4 g/dl (12.0-15.5); MEAN CORPUSCULAR HEMOGLOBIN 37.3 pg (27.0-33.0); MEAN CORPUSCULAR HGB CONC 33.6 g/dl (32.0-36.5); MEAN CORPUSCULAR VOLUME 110.8 fl (80.0-96.0); PLATELET COUNT, AUTOMATED 309 10^3/uL (150-450); RED BLOOD COUNT 3.06 10^6/uL (4.00-5.40); WHITE BLOOD COUNT 16.6 10^3/uL (4.0-10.0)
[2022-06-27 05:40] LABS: CALCIUM LEVEL 8.1 MG/DL (8.8-10.2); CREATININE FOR GFR 1.06 MG/DL (0.55-1.30); GLOMERULAR FILTRATION RATE 54.9 (>45); POTASSIUM SERUM 4.3 MEQ/L (3.5-5.1)
[2022-06-27 06:00] VITALS: BP 163/78
[2022-06-27] MEDS: HEPARIN SOD (PORCINE) 5000UNITS/ML 1ML VIAL/SYRINGE SC SCH (06:00)
[2022-06-27] MEDS: methylPREDNISolone 40MG 1ML VIAL IV SCH (06:42)
[2022-06-27] MEDS: IPRATROPIUM 0.5MG/ALBUTEROL 2.5MG INH SOL UD 3ML (DUONEB) NEB SCH (07:52)
[2022-06-27] MEDS: SYMBICORT 160/4.5MCG INHALER 6GM INH SCH (07:53)
[2022-06-27 08:00] VITALS: BP 169/98
[2022-06-27] MEDS ORDERED: DOXY100T PO (08:12)
[2022-06-27] MEDS ORDERED: PRED10TA2 PO (08:12)
[2022-06-27] MEDS: MULTIVITAMINS/MINERALS THERAP 1 TAB PO SCH (08:23)
[2022-06-27] MEDS: THIAMINE 100 MG TAB PO SCH (08:23)
[2022-06-27] MEDS: FOLIC ACID 1MG TAB PO SCH (08:24)
[2022-06-27 08:25] VITALS: BP 169/98
[2022-06-27] MEDS: DOXYCYCLINE HYCLATE 100MG TABLET PO SCH (08:25)
[2022-06-27] MEDS: amLODIPine 5 MG TAB PO SCH (08:25)
[2022-06-27 10:22] VITALS: BP 158/76
== END 2022-06-27 11:08 | disposition home or self-care (01) | DRG 189 ==
LOC: EDBD 23:07 → M ED 23:07 → M ED INP 06-24 02:49 → M ICU 06-24 02:49
PROVIDERS: ADMIT Internal Medicine; ATTEND Internal Medicine Nephrology
DX: J96.22 Acute and chronic respiratory failure with hypercapnia (principal); J44.1 Chronic obstructive pulmonary disease with (acute) exacerbation; N17.9 Acute kidney failure, unspecified; I10 Essential (primary) hypertension; F12.10 Cannabis abuse, uncomplicated; F10.10 Alcohol abuse, uncomplicated; J96.21 Acute and chronic respiratory failure with hypoxia; Z87.891 Personal history of nicotine dependence; Z79.52 Long term (current) use of systemic steroids; M10.9 Gout, unspecified; Z99.81 Dependence on supplemental oxygen; Z79.899 Other long term (current) drug therapy; Z79.82 Long term (current) use of aspirin; D72.829 Elevated white blood cell count, unspecified

== ENCOUNTER → 2022-11-17 | Outpatient (CLI) | payer MEDICARE ==
[~2022-11-17] MED LIST changes: +ALBU8.5H INH; +AMLO1TAB24 PO; +ASPI1TAB22 PO; +BISO5TAB14 PO; +COMBAER6 INH; +DOXY100T PO; +EQ S PO; +IPRA0.00 INH; +PRED10TA2 PO; +PRED5TA PO; +TREL1AER INH; +VITA500T37 PO
== END ==
LOC: M RAD 10:10
PROVIDERS: ATTEND Internal Medicine Pulmonary Disease
DX: Z12.2 Encounter for screening for malignant neoplasm of respiratory organs (principal); F17.210 Nicotine dependence, cigarettes, uncomplicated; I70.0 Atherosclerosis of aorta; I25.10 Atherosclerotic heart disease of native coronary artery without angina pectoris; J47.9 Bronchiectasis, uncomplicated

== ENCOUNTER → 2022-11-24 | Outpatient (REF) | payer MEDICARE, BC ==
[2022-11-24 13:32] LABS: APPEARANCE, URINE CLEAR (CLEAR); BACTERIA, URINE AUTO NEGATIVE (NEGATIVE); BILIRUBIN, URINE AUTO NEGATIVE (NEGATIVE); BLOOD, URINE BLOOD NEGATIVE (NEGATIVE); COLOR, URINE YELLOW (YELLOW); GLUCOSE, URINE (UA) AUTO NEGATIVE (NEGATIVE); KETONE, URINE AUTO TRACE mg/dL (NEGATIVE); LEUKOCYTE ESTERASE, URINE AUTO NEGATIVE (NEGATIVE); MUCUS, URINE SMALL (NEGATIVE); NITRITE, URINE AUTO NEGATIVE (NEGATIVE); PROTEIN, URINE AUTO 1+ mg/dL (NEGATIVE); RBC, URINE AUTO 0 /HPF (0-3); SPECIFIC GRAVITY URINE AUTO 1.017 (1.002-1.035); SQUAMOUS EPITHELIAL CELL UR AU 1 /HPF (0-6); UROBILINOGEN, URINE AUTO 0.2 mg/dL (0.0-2.0); WBC, URINE AUTO 1 /HPF (0-3)
[2022-11-24 13:36] LABS: ALBUMIN 4.2 G/DL (3.2-5.2); BILIRUBIN,TOTAL 0.2 MG/DL (0.3-1.2); CALCIUM LEVEL 9.2 MG/DL (8.3-10.6); CHOLESTEROL RISK RATIO 1.65 (<5); CREATININE FOR GFR 1.11 MG/DL (0.55-1.30); HDL CHOLESTEROL 166.5 MG/DL (>40); LDL CHOLESTEROL 93.7 MG/DL (<100); MAGNESIUM LEVEL 1.4 MG/DL (1.8-2.4); NON-HDL-C 108.5 MG/DL; POTASSIUM SERUM 4.5 MMOL/L (3.5-5.1); TOTAL PROTEIN 7.1 G/DL (5.7-8.2)
[2022-11-24 13:43] LABS: FOLATE 3.4 NG/ML (>5.4)
[2022-11-24 13:44] LABS: BASO # 0.1 10^3/uL (0.0-0.2); BASO % 0.5 % (0.0-1.0); EOS % 0.1 % (0.0-3.0); HEMATOCRIT 41.9 % (36.0-47.0); HEMOGLOBIN 13.7 g/dl (12.0-15.5); LYMPH # 0.7 10^3/uL (1.5-5.0); LYMPH % 7.2 % (24.0-44.0); MEAN CORPUSCULAR HEMOGLOBIN 36.1 pg (27.0-33.0); MEAN CORPUSCULAR HGB CONC 32.7 g/dl (32.0-36.5); MEAN CORPUSCULAR VOLUME 110.3 fl (80.0-96.0); MONO # 0.3 10^3/uL (0.0-0.8); MONO % 2.6 % (2.0-8.0); NEUTROPHILS # 8.8 10^3/uL (1.5-8.5); NEUTROPHILS % 88.7 % (36.0-66.0); PLATELET COUNT, AUTOMATED 397 10^3/uL (150-450); WHITE BLOOD COUNT 9.9 10^3/uL (4.0-10.0)
== END ==
LOC: M SFHCADAM 09:14
PROVIDERS: ATTEND Physician Assistant
DX: J43.9 Emphysema, unspecified (principal); N32.81 Overactive bladder; F17.211 Nicotine dependence, cigarettes, in remission; I10 Essential (primary) hypertension; D35.02 Benign neoplasm of left adrenal gland; F41.9 Anxiety disorder, unspecified; E83.42 Hypomagnesemia; F10.10 Alcohol abuse, uncomplicated; Z79.899 Other long term (current) drug therapy

== ENCOUNTER → 2022-12-09 | Outpatient (REF) | payer MEDICARE, BC ==
[2022-12-09 13:45] LABS: MAGNESIUM LEVEL 1.5 MG/DL (1.8-2.4)
[2022-12-09 13:46] LABS: C REACTIVE PROTEIN QUANTITATIV 0.8 MG/DL (<1.0)
[2022-12-10 18:09] LABS: FREE KAPPA LIGHT CHAINS SERUM 37.2 mg/L (3.3-19.4); FREE LAMBDA LIGHT CHAINS SERUM 23.6 mg/L (5.7-26.3); KAPPA/LAMBDA RATIO SERUM 1.58 (0.26-1.65)
== END ==
LOC: M SFHCADAM 10:51
PROVIDERS: ATTEND Physician Assistant
DX: E83.42 Hypomagnesemia (principal); D75.89 Other specified diseases of blood and blood-forming organs

== ENCOUNTER → 2023-09-21 | Outpatient (REF) | payer MEDICARE ==
[2023-09-21 18:43] LABS: BASO % 0.4 % (0.0-1.0); EOS % 0.2 % (0.0-3.0); HEMATOCRIT 40.6 % (36.0-47.0); HEMOGLOBIN 13.2 g/dl (12.0-15.5); LYMPH # 0.8 10^3/uL (1.5-5.0); LYMPH % 9.2 % (24.0-44.0); MEAN CORPUSCULAR HEMOGLOBIN 34.1 pg (27.0-33.0); MEAN CORPUSCULAR HGB CONC 32.5 g/dl (32.0-36.5); MEAN CORPUSCULAR VOLUME 104.9 fl (80.0-96.0); MONO # 0.3 10^3/uL (0.0-0.8); MONO % 2.8 % (2.0-8.0); NEUTROPHILS # 7.7 10^3/uL (1.5-8.5); NEUTROPHILS % 86.6 % (36.0-66.0); PLATELET COUNT, AUTOMATED 454 10^3/uL (150-450); RED BLOOD COUNT 3.87 10^6/uL (4.00-5.40); WHITE BLOOD COUNT 8.9 10^3/uL (4.0-10.0)
[2023-09-21 19:05] LABS: ALBUMIN 3.8 G/DL (3.2-5.2); ALKALINE PHOSPHATASE 142 U/L (46-116); ALT/SGPT 20 U/L (7.0-40); AST/SGOT 23 U/L (<34); BILIRUBIN,TOTAL 0.3 MG/DL (0.3-1.2); BLOOD UREA NITROGEN 14 MG/DL (9-23); CALCIUM LEVEL 9.2 MG/DL (8.3-10.6); CARBON DIOXIDE LEVEL 27 MMOL/L (20-31); CHLORIDE LEVEL 102 MMOL/L (98-107); CHOLESTEROL LEVEL 246 MG/DL (<200); CHOLESTEROL RISK RATIO 1.98 (<5); CREATININE FOR GFR 0.89 MG/DL (0.55-1.30); GLOMERULAR FILTRATION RATE > 60.0 (>45); GLUCOSE, FASTING 81 MG/DL (74-106); HDL CHOLESTEROL 124.1 MG/DL (>40); LDL CHOLESTEROL 91.9 MG/DL (<100); MAGNESIUM LEVEL 1.4 MG/DL (1.8-2.4); NON-HDL-C 121.9 MG/DL; POTASSIUM SERUM 4.8 MMOL/L (3.5-5.1); SODIUM LEVEL 137 MMOL/L (136-145); TOTAL PROTEIN 6.9 G/DL (5.7-8.2); TRIGLYCERIDES LEVEL 150 MG/DL (<150); VITAMIN B12 LEVEL 440 PG/ML (211-911)
== END ==
LOC: M SFHCADAM 15:23
PROVIDERS: ATTEND Physician Assistant
DX: Z00.00 Encounter for general adult medical examination without abnormal findings (principal); D89.89 Other specified disorders involving the immune mechanism, not elsewhere classified; E83.42 Hypomagnesemia; E53.8 Deficiency of other specified B group vitamins; F10.10 Alcohol abuse, uncomplicated; F17.211 Nicotine dependence, cigarettes, in remission; J43.9 Emphysema, unspecified; I10 Essential (primary) hypertension